=== PATIENT | male | born 1955 | race Caucasian/White ===

== ENCOUNTER 2017-06-04 16:26 | Inpatient (IN) | payer BC ==
[2017-06-04 16:48] VITALS: BMI 40.4
[2017-06-04] MEDS ORDERED: FLU VACC QS2017-18 36 mo. & older 0.5 ML SYRINGE IM ONE (17:15)
[2017-06-04 19:05] LABS: #Eosinphils 0.3 thou/uL (0.0-0.7); #Lymphocytes 1.5 thou/uL (1.20-3.40); #Neutrophils 8.7 thou/uL (1.40-6.50); %Basophils 0.1 % (0.0-1.0); %Lymphocytes 12.7 % (21.0-51.0); %Monocytes 8.8 % (0.0-10.0); %Neutrophils 75.4 % (42.0-75.0); Hemoglobin 16.4 g/dL (14.0-18.0); Mean Corpuscular HGB CONC 31.3 g/dL (32.0-36.0); Mean Corpuscular Hemoglobin 28.1 pg (27.0-31.0); Mean Corpuscular Volume 89.7 fl (80.0-94.0); Mean Platelet Volume 8.5 fL (7.4-10.4); Platelet Count 235 thou/uL (130-400); Red Blood Cell (RBC) Count 5.85 mill/uL (4.70-6.10); White Blood Cell (WBC) Count 11.5 thou/uL (4.8-10.8)
[2017-06-04 19:29] LABS: ALT (SGPT) 15 U/L (8-55); AST (SGOT) 9 U/L (5-34); Albumin 3.9 g/dL (3.4-4.8); Alkaline Phosphatase 72 U/L (40-150); Anion Gap 12 mmol/L (10-20); BUN (Urea Nitrogen) 18 mg/dL (8.4-25.7); Bilirubin, Total 0.7 mg/dL (0.2-1.2); Calc. Creatinine Clearance 193 mL/min (70-130); Calcium 9.9 mg/dL (7.8-10.44); Carbon Dioxide 25 mmol/L (23-31); Chloride 101 mmol/L (98-107); Estimated GFR-MDRD 87; Globulin 3.1 g/dL (2.4-3.5); Glucose 92 mg/dL (80-115); Potassium 4.4 mmol/L (3.5-5.1); Sodium 134 mmol/L (136-145)
--- NOTE | 2017-06-04 23:52 | ULT ---
BILATERAL LOWER EXTREMITY ARTERIAL DOPPLER STUDY: 06/04/17 Ultrasound doppler study is performed in the arteries of both lower extremities. Color doppler with s pectral analysis and velocity recordings obtained at all segments. HISTORY: Left foot gangrene. LEFT LOWER EXTREMITY: The left common femoral artery shows a normal triphasic waveform. The left profunda femoral and superficial femoral arteries show a biphasic waveform. Left popliteal artery shows a biphasic waveform. Left anterior tibial artery show a biphasic waveform. The left posterior tibial artery and dorsalis pedis artery show a monophasic waveform. RIGHT LOWER EXTREMITY: The right common femoral artery, profunda femoral, superficial femoral, popliteal, and anterior tibia l artery all show a normal triphasic waveform. The right posterior tibial artery shows a biphasic waveform. The right dorsalis pedis artery exhibits a monophasic waveform. IMPRESSION: Evidence of moderate disease below the knee on the left with monophasic waveform seen in the left pos terior tibial artery and dorsalis pedis artery. POS: [facility]
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
[2017-06-05] MEDS: Bupropion 150 MG XL TAB PO SCH (08:55)
--- NOTE | 2017-06-05 12:00 | CT ---
CT ANGIO OF ABDOMEN AND PELVIS AND LOWER EXTREMITIES PERFORMED WITH INTRAVENOUS CONTRAST ENHANCEMENT WITH 3D RECONSTRUCTIONS: History: Left foot gangrene. FINDINGS: This examination did not include the entire abdomen due to patient being 6'6, to obtained the enti re lower extremities a portion of the abdomen was not included on this exam. The visualized portions of the liver and spleen are unremarkable. Only a small portion of the pancrea tic head is visualized and is normal. The lower half of both kidneys are noted. There is a small dens e calcification along the cortex of the right kidney and a Bosniak II lobulated mass involving the po sterior cortex of the right kidney, it measures 2.7 cm in size and has fairly dense calcification carolyn ng the margin and would warrant follow up. No significant periaortic adenopathy noted. No significant pelvic adenopathy. Angiographic portion of this examination did not include the celiac artery but shows a patent superio r mesenteric artery and single renal arteries bilaterally. The abdominal aorta is normal in caliber. The right lower extremity run off shows patent internal, external, and common iliac arteries. The rig ht common femoral artery, superficial and profunda femoral arteries appear unremarkable as does the r ight popliteal artery. There is a patent trifurcation and there is three vessel run off. On the left side, the left common as well as internal and external iliac arteries show no significant stenosis. The superficial and profunda femoral arteries are patent without significant narrowing and the popliteal artery is normal in caliber. There is a patent trifurcation and there is three vessel runoff to the foot. There is prominent varicosities particularly involving the left leg and soft tissue edema changes of the calf region. In addition there is pronounced atrophy in the region of the gastro and psoas muscle s on the left side. There is also a small left common and external iliac vein. There is some calcific ation associated with this. Varicosities include prominent varicosities in the region of the scrotum. IMPRESSION: 1. Bosniak II lesion of the right kidney. Complete characterization with a CT with and without contra st with renal mass protocol is recommended and this will determine additional follow up. 2. Three vessel runoff to both lower extremities. No areas of any significant arterial narrowing. 3. Prominent varicosities, particularly the left lower extremity with asymmetry in size of left leg a s compared to the right and soft tissue edema changes in the calf region. In addition, there is diffu se muscle atrophy of the left calf, specifically the gastro and psoas muscles. This suggests a long-s tanding process. There is a small caliber left common iliac and external iliac vein with some calcifi cation. I suspect that this represents chronic thrombus and may explain the presence of the varicosit y. Venous ultrasound of the left leg may be helpful in assessment. POS: [facility]
[2017-06-05] MEDS ORDERED: HYDROcodone/Acetaminophen 5/325 mg Tablet PO PRN ×2 (17:05)
[2017-06-05] MEDS: Rivaroxaban 10 MG TAB PO SCH (17:28)
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
[2017-06-05 19:37] LABS: Vancomycin, Trough 24.1 ug/mL
--- NOTE | 2017-06-05 19:51 | ULT ---
LEFT LOWER EXTREMITY VENOUS DUPLEX EXAM: 06/05/17 Deep veins of the left lower extremity evaluated with color doppler and spectral analysis and manjit cristino. HISTORY: Left foot gangrene and peripheral vascular disease. Left leg edema. Deep veins of the left lower extremity evaluated including common femoral vein, profunda femoral, sup erficial femoral, greater saphenous and popliteal vein. Posterior tibial vein not adequately evaluate d due to bandaging. Deep veins evaluated show normal compression and blood flow. No evidence of DVT identified. IMPRESSION: No evidence of left lower extremity DVT. Incidentally noted is an enlarged lymph node in the left joanna in. POS: [facility]
[2017-06-05] MEDS: Vancomycin HCl 1.75 GM in Sodium Chloride 0.9% 500 ML IVPB SCH (22:26)
--- NOTE | 2017-06-06 02:26 | PRG ---
DATE OF SERVICE: 06/05/2017 SUBJECTIVE: The patient had a good night. His is at bedside. He did undergo multitude of test that were all abnormal. PHYSICAL EXAMINATION: GENERAL: Upon evaluation, he is awake, alert, and oriented to person, place and time. VITAL SIGNS: His blood pressure is 106/60, pulse 67, respirations 20, temperature 98.5. NECK: Supple. JVP cannot be assessed due to obese neck. Carotid had good upstroke with no thyromeg adelso. COR: Regular rate and rhythm. CHEST: Symmetrical. Clear to auscultation and percussion. ABDOMEN: Soft, nontender, obese. Normoactive bowel sounds. No bruit or organomegaly. EXTREMITIES: His left lower extremity is wrapped. He has missing toes bilaterally. ASSESSMENT: 1. Peripheral vascular disease. 2. History of left lower extremity deep venous thrombosis. 3. History of multiple amputations of bilateral toes. 4. Anxiety. 5. Obesity. 6. Tobacco use. 7. Bosniak 2 lesion of the right kidney. PLAN: 1. I have ordered a left lower extremity venous Doppler to further address the chronic thrombosis. Also, a CT with and without contrast renal protocol of the abdomen will be obtained as well. 2. Will continue IV antibiotics. Pharmacy is doing the peak and trough of the vanc and also will fo llow up in the morning with a CBC. Also, waiting for a cardiovascular surgeon ordered by Dr. Sondra hernandez. The patient verbalized understanding and all questions answered to satisfaction.
[2017-06-06 04:39] LABS: #Eosinphils 0.5 thou/uL (0.0-0.7); #Lymphocytes 1.3 thou/uL (1.20-3.40); #Monocytes 0.7 thou/uL (0.11-0.59); #Neutrophils 5.1 thou/uL (1.40-6.50); %Basophils 0.4 % (0.0-1.0); %Eosinophils 6.2 % (0.0-10.0); %Lymphocytes 16.7 % (21.0-51.0); %Monocytes 9.7 % (0.0-10.0); Hemoglobin 15.3 g/dL (14.0-18.0); Mean Corpuscular HGB CONC 32.3 g/dL (32.0-36.0); Mean Corpuscular Hemoglobin 29.2 pg (27.0-31.0); Mean Corpuscular Volume 90.4 fl (80.0-94.0); Mean Platelet Volume 8.3 fL (7.4-10.4); Platelet Count 216 thou/uL (130-400); Red Blood Cell (RBC) Count 5.22 mill/uL (4.70-6.10); White Blood Cell (WBC) Count 7.6 thou/uL (4.8-10.8)
[2017-06-06] MEDS: Vancomycin HCl 1.75 GM in Sodium Chloride 0.9% 500 ML IVPB SCH ×3 (05:52→21:15)
[2017-06-06] MEDS: Bupropion 150 MG XL TAB PO SCH (09:07)
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
--- NOTE | 2017-06-06 11:22 | CT ---
CT ABDOMEN WITH AND WITHOUT IV CONTRAST: DATE: 06/06/17. HISTORY: Followup right renal lesion noted on prior exam. COMPARISON: CT angiogram abdomen and pelvis on 06/05/17. FINDINGS: As noted on the prior exam, there is a lobulated exophytic complex cystic structure at the posterior aspect mid portion right kidney which demonstrates thick calcifications at the realm of a portion of this cystic lesion. This does not demonstrate enhancement between the pre- and post-contrast images. This is most compatible with a Bosniak category IIF lesion. This lesion in greatest dimensions ruth sures 3.1 cm. In addition, there is a tiny subcentimeter exophytic peripherally calcified subcentimeter cystic lesi on at the superior pole right kidney. A 2.2 cm exophytic increased density lesion is seen at the medial aspect of the mid portion left kidn ey. This does not demonstrate enhancement and is consistent with Bosniak type II cystic renal lesion . No enhancing renal lesion is identified. Multiple calculi are seen within the gallbladder lumen. There is atelectasis versus scarring at the left lung base with elevation of the lateral aspect of le ft hemidiaphragm which could be attributable to scarring. The liver demonstrates a normal sonographic appearance. There is low-density lesion within the anterior aspect body of the spleen measuring 1.7 cm which is d ifficult to characterize on this exam. The spleen is enlarged in craniocaudal dimensions measuring a pproximately 15 cm. The pancreas and bilateral adrenal glands demonstrate a normal CT appearance. A moderate amount of retained fecal material is seen in the colon. Vascular calcification is seen in the abdominal aorta and visualized iliac arteries. No other interv al change compared to the prior exam. IMPRESSION: 1. Bosniak type IIF cystic lesion mid portion of the right kidney with a very tiny subcentimeter Edd niak type IIF cystic renal lesion at the superior pole right kidney. Urology consultation and contin ued followup is recommended. 2. Bosniak type II left renal cyst. 3. Hypodense lesion within the body of the spleen which may represent a lymphangioma or possibly hem angioma. Splenomegaly. 4. Constipation. POS: [facility]
--- NOTE | 2017-06-06 12:29 | CON ---
DATE OF CONSULTATION: 06/06/2017 HISTORY OF PRESENT ILLNESS: I tried on three separate occasions to see Mr. Luu. He has not been i n his room on any of these occasions. The patient was admitted with left foot gangrene. He has had a vascular workup which includes a phys ical examination by Dr. Quiros documenting palpable pulses throughout. He has had a vascular ultras ound, which shows no evidence of DVT. He has had a CT angiogram with runoff of the aorta and bilater al lower extremity arteries, which shows no evidence of significant peripheral vascular disease and 3 -vessel runoff to the foot. IMPRESSION: No significant peripheral vascular disease. The foot should be managed as Dr. Quiros s ana luisa fit. I see no reason for further vascular investigation based on these studies.
[2017-06-06] MEDS: Rivaroxaban 10 MG TAB PO SCH (16:24)
--- NOTE | 2017-06-06 16:43 | PRG ---
DATE OF SERVICE: 06/06/2017 SUBJECTIVE: Mr. Luu feels fine today. He is not having any pain. His wound was examined with the wound care team. Skin along the medial edge is somewhat questionable. The remainder of the wound looks stable compared to yesterday. No fluctuance, no expressible purulence. Vascular surgery has seen him and does not feel that he has any macrovascular disease that can be surgically addressed. Cultures have multiple organisms on Gram stain with final IDs and sensitivities pending. The foot is less edematous today after being wrapped and elevated. ASSESSMENT: Nonhealing ulcer of the dorsum of the foot. Location of the ulcer would make it somewhat difficult to address with anything less than a below- knee amputation although a transmetatarsal amputation with a long plantar flap could be attempted. At this point, the ulcer appears fairly stable. We are going to give a trial of conservative wound management with VAC dressing and hyperbaric therapy and continued antibiotics and wound care team will be following the patient over the weekend. I will see him with them on Friday. If the wound looks significantly worse, then we will likely proceed to surgery. SOFIE
[2017-06-06 21:21] LABS: Vancomycin, Trough 27.1 ug/mL
[2017-06-07] MEDS: Bupropion 150 MG XL TAB PO SCH (09:10)
[2017-06-07] MEDS ORDERED: Milk Of Magnesia 30 ML UDCUP PO SCH (13:45)
[2017-06-07] MEDS ORDERED: Bisacodyl 10 MG SUPP PR SCH (13:45)
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
[2017-06-08] MEDS: Bupropion 150 MG XL TAB PO SCH (09:25)
[2017-06-08] MEDS: Enoxaparin Sodium 40 MG/0.4 ML SYRINGE SC SCH (09:25)
[2017-06-08] MEDS: Milk Of Magnesia 30 ML UDCUP PO SCH (09:25)
[2017-06-08 17:42] LABS: Vancomycin, Trough 16.2 ug/mL
[2017-06-09] MEDS: Enoxaparin Sodium 40 MG/0.4 ML SYRINGE SC SCH (08:58)
[2017-06-09] MEDS: Bupropion 150 MG XL TAB PO SCH (08:59)
[2017-06-09] MEDS: Milk Of Magnesia 30 ML UDCUP PO SCH (08:59)
[2017-06-10 07:36] VITALS: TEMP 97.8
[2017-06-10] MEDS: Enoxaparin Sodium 40 MG/0.4 ML SYRINGE SC SCH (08:06)
[2017-06-10] MEDS: Milk Of Magnesia 30 ML UDCUP PO SCH (08:06)
[2017-06-10] MEDS: Bupropion 150 MG XL TAB PO SCH (08:07)
[2017-06-10 12:38] VITALS: BP 120/68
--- NOTE | 2017-06-10 19:45 | DIS ---
FINAL DIAGNOSES: 1. Left foot ulcer. 2. Obesity. 3. Hypertension. 4. Tobacco use. 5. History of deep vein thrombosis and pulmonary embolism, on Xarelto. 6. History of peripheral vascular disease. COMPLICATIONS: None. PROCEDURES: The patient had abdominal aorta runoff CTA on 06/05/2017 at which time he was found to h ave Bosniak 2 lesion of the right kidney, also chronic thrombosis, muscle atrophy and no significant area of arterial narrowing. CONSULTANTS: 1. Dr. Quiros. 2. Dr. Loomis. HOSPITAL COURSE: This is a pleasant gentleman who was seen in the clinic where he had an ulcer that he states happened after his boot started rubbing it. His was taking care of it at home. When he was seen in the clinic, it looked horrible, had a foul smelling odor to it. He was immediately ad mitted to the hospital where arterial Doppler was positive for PVD. The patient was started on IV an tibiotics. Home medications were resumed. The patient also had a left lower extremity venous Dopple r which was unremarkable. The patient underwent aorta with runoff , tolerated the procedure wel l and had no complication. The patient was seen by Wound Care and Dr. Quiros. Dr. Quiros did treat his foot at bedside by rem oving necrotic tissue. The patient was found to have a renal mass as enumerated above. Dr. Loomis was asked to see the patient in consultation and did not feel like this was anything to worry about, but, however, would need to return to his office to repeat CAT scan in 6 months. The patient's lab w as unremarkable. White blood cells were normal, upon evaluation was 11.5 and upon dismissal was 7.6. His sodium was 134. The patient had no complications. His vancomycin was discontinued. He will b e started on Bactrim-DS b.i.d. for 10 days. I did speak with Dr. Quiros. Dr. Quiros said he could be dismissed and have hyperbaric and home VAC, also home health would be set up. The patient was ad vised to stop smoking secondary to poor healing. The patient verbalized understanding. He will cont inue on a regular diet. ACTIVITIES: As tolerated by patient. DISCHARGE MEDICATIONS: 1. Bactrim-DS b.i.d. for 10 days. 2. Aspirin 81 mg daily. 3. Olmesartan medoxomil 40 mg every day. 5. Xarelto 20 mg every day. 6. Wellbutrin-XL 150 mg every day. FOLLOWUP: He will follow up with Rekha in 1 week. He will also follow up with outpatient [facility] and he would also see Dr. Quiros there as well. This is ORLANDO Sampson, dictating for Riley Reid M.D.
== END 2017-06-10 15:41 | disposition home or self-care (01) | DRG 300 ==
LOC: T4-B 16:26
PROVIDERS: ADMIT Specialist; ATTEND Specialist
PROC: B41D1ZZ Fluoroscopy of Aorta and Bilateral Lower Extremity Arteries using Low Osmolar Contrast (ICD-10-PCS; principal; 2017-06-05)
DX: I96 Gangrene, not elsewhere classified (principal); Z68.41 Body mass index [BMI] 40.0-44.9, adult; L97.529 Non-pressure chronic ulcer of other part of left foot with unspecified severity; I73.9 Peripheral vascular disease, unspecified; N28.1 Cyst of kidney, acquired; F17.210 Nicotine dependence, cigarettes, uncomplicated; I10 Essential (primary) hypertension; Z86.718 Personal history of other venous thrombosis and embolism; Z79.01 Long term (current) use of anticoagulants; Z89.422 Acquired absence of other left toe(s); Z89.421 Acquired absence of other right toe(s); F41.9 Anxiety disorder, unspecified; E66.9 Obesity, unspecified; I87.2 Venous insufficiency (chronic) (peripheral); M62.562 Muscle wasting and atrophy, not elsewhere classified, left lower leg
CPT/HCPCS: 36415; 74170; 75635; 80053; 80202; 85025; 87070; 87077; 87205; 93923; 93925; 99183; A4216; J1650; J3370; J7050

== ENCOUNTER 2017-06-11 12:57 | Outpatient (CLI) | payer BC | END 2017-06-11 12:58 | disposition home or self-care (01) | LOC: HBO 12:57 | PROVIDERS: ATTEND Family Medicine | DX: I70.25 Atherosclerosis of native arteries of other extremities with ulceration (principal) | CPT/HCPCS: 99183 ==

== ENCOUNTER 2017-06-16 12:53 | Outpatient (CLI) | payer BC | END 2017-06-16 12:54 | disposition home or self-care (01) | LOC: WCC 12:53 | PROVIDERS: ATTEND Podiatrist Foot & Ankle Surgery | DX: I70.25 Atherosclerosis of native arteries of other extremities with ulceration (principal) | CPT/HCPCS: 97605 ==

== ENCOUNTER 2017-06-17 15:03 | Outpatient (CLI) | payer BC | END 2017-06-17 15:04 | disposition home or self-care (01) | LOC: WCC 15:03 | PROVIDERS: ATTEND Podiatrist Foot & Ankle Surgery | DX: I70.25 Atherosclerosis of native arteries of other extremities with ulceration (principal) | CPT/HCPCS: 97605; 99183 ==

== ENCOUNTER 2017-06-18 12:44 | Outpatient (CLI) | payer BC | END 2017-06-18 12:45 | disposition home or self-care (01) | LOC: HBO 12:44 | PROVIDERS: ATTEND Family Medicine | DX: I70.25 Atherosclerosis of native arteries of other extremities with ulceration (principal) | CPT/HCPCS: 99183 ==

== ENCOUNTER 2017-06-23 12:40 | Outpatient (CLI) | payer BC ==
--- NOTE | 2017-06-23 17:22 | PRG ---
DATE OF SERVICE: 06/23/2017 HISTORY: Mr. Arash Luu is a very pleasant 61-year-old gentleman who presents to the [facility]ound Center for evaluation of an ulceration over the dorsum of the left foot. The patient's medical history is significant for peripheral vascular disease. The patient is presently receiving hyperbaric oxygen therapy. The patient is also receiving negative pressure therapy for the ulceration over the dorsum of the left foot. PHYSICAL EXAMINATION: VITAL SIGNS: Temperature 97.5, pulse 86, respirations 18, blood pressure 120/ 62. EXTREMITIES: An ulceration over the dorsum of the left foot is present. The dimensions of the wound are approximately 2.8 x 5.5 cm. Granulation tissue is present within the wound margins. No purulent drainage is associated with the wound. Tendon is exposed within the wound margins. The ulceration over the dorsum of the left foot was copiously irrigated with normal saline. Hyalomatrix was fenestrated and cut with scissors to mirror the shape of the wound. The Hyalomatrix was then placed into the wound bed silicone side up and covered with Adaptic Touch. After draping of the periwound over the Adaptic Touch, GranuFoam was applied to the wound bed over the Hyalomatrix and Adaptic Touch. ASSESSMENT AND PLAN: 1. Ulceration over dorsum of left foot with exposed tendon. Hyalomatrix was applied to the wound bed of the ulceration today. Negative pressure therapy will be continued. The wound VAC will be placed to settings of 125 mmHg, continuous. The next wound VAC dressing change will be on 06/26/2017. I will see Mr. Luu again in 1 week. Hyperbaric oxygen therapy will also be continued. 2. Hypertension. 3. Peripheral vascular disease. 4. Deep venous thrombosis of right and left lower extremities. [facility]
== END 2017-06-23 12:41 | disposition home or self-care (01) ==
LOC: WCC 12:40
PROVIDERS: ATTEND Podiatrist Foot & Ankle Surgery
DX: L97.529 Non-pressure chronic ulcer of other part of left foot with unspecified severity (principal); I10 Essential (primary) hypertension; I73.9 Peripheral vascular disease, unspecified; I82.403 Acute embolism and thrombosis of unspecified deep veins of lower extremity, bilateral
CPT/HCPCS: 97605; 99183

== ENCOUNTER 2017-06-24 13:50 | Outpatient (CLI) | payer BC | END 2017-06-24 13:51 | disposition home or self-care (01) | LOC: WCC 13:50 | PROVIDERS: ATTEND Podiatrist Foot & Ankle Surgery | DX: T81.89XD Other complications of procedures, not elsewhere classified, subsequent encounter (principal) | CPT/HCPCS: 99183 ==

== ENCOUNTER 2017-06-26 13:03 | Outpatient (CLI) | payer BC | END 2017-06-26 13:04 | disposition home or self-care (01) | LOC: WCC 13:03 | PROVIDERS: ATTEND Podiatrist Foot & Ankle Surgery | DX: T81.89XD Other complications of procedures, not elsewhere classified, subsequent encounter (principal) | CPT/HCPCS: 97605; 99183 ==

== ENCOUNTER 2017-06-30 12:54 | Outpatient (CLI) | payer BC ==
[~2017-06-30 12:54] MED LIST: Sodium Chloride 0.9% 15 ML NEB ONE
--- NOTE | 2017-06-30 13:50 | PRG ---
DATE OF SERVICE: 06/30/2017 HISTORY: Mr. Arash Luu is a very pleasant 61-year-old gentleman who presents to the Wound Center for evaluation of ulceration over the dorsum of the left foot. The patient's medical history is sign ificant for peripheral vascular disease. The patient is currently receiving treatment with Hyalomatr ix in conjunction with negative pressure therapy for the ulceration over the dorsum of the left foot. The patient has also been receiving hyperbaric oxygen therapy. PHYSICAL EXAMINATION: VITAL SIGNS: Temperature 97.9, pulse 111, respirations 18, and blood pressure 167/77. EXTREMITIES: Ulceration over the dorsum of the left foot is still present. The dimensions of the wo und are approximately 5.4 x 2.8 cm. The dimensions of the wound at the time of the patient's visit o n 06/23/2017 were approximately 5.5 x 2.8 cm. Granulation tissue is present within the wound margins . No purulent drainage is associated with the wound. No erythema of the skin surrounding the wound is present. No maceration of the skin of the periwound is noted. A dorsalis pedis pulse is palpable on the left. No significant edema of the left foot is appreciated on today's exam. The ulceration over the dorsum of the left foot was copiously irrigated with normal saline. Hyalomatrix was fenestr ated and trimmed with scissors to mirror, the shape of the wound. Hyalomatrix was then placed into t he wound bed silicone side up and covered with Adaptic touch. After draping of the periwound over th e Adaptic touch, Granufoam was applied to the wound bed over the Hyalomatrix and Adaptic touch. ASSESSMENT AND PLAN: 1. Ulceration over dorsum of left foot with exposed tendon. Hyalomatrix was applied to the wound be d of the ulceration today. Negative pressure therapy will be continued. The wound VAC will be place d to settings of 125 mmHg, continuous. The next wound VAC dressing change will be in 3 days. I will see Mr. Luu again in two weeks. The patient declines hyperbaric oxygen therapy today because of c laustrophobia. 2. Hypertension. 3. Peripheral vascular disease. 4. Deep venous thrombosis of right and left lower extremities.
== END 2017-06-30 12:55 | disposition home or self-care (01) ==
LOC: HBO 12:54
PROVIDERS: ATTEND Family Medicine
DX: L97.529 Non-pressure chronic ulcer of other part of left foot with unspecified severity (principal); I10 Essential (primary) hypertension; I73.9 Peripheral vascular disease, unspecified; I82.403 Acute embolism and thrombosis of unspecified deep veins of lower extremity, bilateral
CPT/HCPCS: 97605; A4218

== ENCOUNTER 2017-07-03 07:50 | Outpatient (CLI) | payer BC ==
[2017-07-07] MEDS ORDERED: Sodium Chloride 0.9% 15 ML NEB ONE (16:50)
== END 2017-07-03 07:51 | disposition home or self-care (01) ==
LOC: WCC 07:50
PROVIDERS: ATTEND Family Medicine
DX: T81.89XD Other complications of procedures, not elsewhere classified, subsequent encounter (principal)
CPT/HCPCS: 97605; A4218

== ENCOUNTER 2017-07-07 10:03 | Outpatient (CLI) | payer BC | END 2017-07-07 10:04 | disposition home or self-care (01) | LOC: WCC 10:03 | PROVIDERS: ATTEND Family Medicine | DX: T81.89XD Other complications of procedures, not elsewhere classified, subsequent encounter (principal) | CPT/HCPCS: 97606; A4218 ==

== ENCOUNTER 2017-07-10 09:41 | Outpatient (CLI) | payer BC ==
[2017-07-10] MEDS ORDERED: Sodium Chloride 0.9% 15 ML NEB ONE ×2 (16:28→16:29)
== END 2017-07-10 09:42 | disposition home or self-care (01) ==
LOC: WCC 09:41
PROVIDERS: ATTEND Family Medicine
DX: T81.89XD Other complications of procedures, not elsewhere classified, subsequent encounter (principal)
CPT/HCPCS: 97605; A4218

== ENCOUNTER 2017-07-14 12:47 | Outpatient (CLI) | payer BC ==
--- NOTE | 2017-07-14 14:19 | PRG ---
DATE OF SERVICE: 07/14/2017 HISTORY: Mr. Arash Luu is a very pleasant 61-year-old gentleman, who presents to [facility] for evaluation of an ulceration over the dorsum of the left foot. The patient's medical history is significant for peripheral vascular disease. The patient is presently receiving treatment with Hy alomatrix in conjunction with negative pressure therapy for the ulceration over the dorsum of the lef t foot. The patient has completed a course of hyperbaric oxygen therapy. PHYSICAL EXAMINATION: VITAL SIGNS: Temperature 99.3, pulse 89, respirations 19, and blood pressure 132/62. EXTREMITIES: An ulceration over the dorsum of the left foot is still present. The dimensions of the wound are approximately 3.5 x 5.0 cm. The dimensions of the wound at the time of the patient's visi t on 06/30/2017 were approximately 5.4 x 2.8 cm. Granulation tissue is present within the wound mina ins. No purulent drainage is associated with the wound. A small portion of the wound bed has a gree n discoloration. ASSESSMENT AND PLAN: 1. Ulceration over dorsum of left foot with exposed tendon. Negative pressure therapy will be sahara nued. The wound VAC will be placed the settings of 125 mmHg continuous. The next wound VAC dressing change will be in 3 days. I will see Mr. Luu again in one week. The patient has been given a pre scription for Levaquin 500 mg #10 one p.o. q. day x10 days. As stated above, the patient has complet ed a course of hyperbaric oxygen therapy. 2. Hypertension. 3. Peripheral vascular disease. 4. Deep venous thrombosis of right and left lower extremities.
[2017-07-14] MEDS ORDERED: Sodium Chloride 0.9% 15 ML NEB ONE (19:53)
[2017-07-14] MEDS ORDERED: Lidocaine 2% Jelly 5 ML TUBE ONE (19:53)
== END 2017-07-14 12:48 | disposition home or self-care (01) ==
LOC: WCC 12:47
PROVIDERS: ATTEND Family Medicine
DX: L97.528 Non-pressure chronic ulcer of other part of left foot with other specified severity (principal); I10 Essential (primary) hypertension; I73.9 Peripheral vascular disease, unspecified; I82.403 Acute embolism and thrombosis of unspecified deep veins of lower extremity, bilateral
CPT/HCPCS: A4218

== ENCOUNTER 2017-07-15 11:38 | Outpatient (CLI) | payer BC | END 2017-07-15 11:39 | disposition home or self-care (01) | LOC: WCC 11:38 | PROVIDERS: ATTEND Family Medicine | DX: T81.89XD Other complications of procedures, not elsewhere classified, subsequent encounter (principal) | CPT/HCPCS: 97605 ==

== ENCOUNTER 2017-07-17 10:36 | Outpatient (CLI) | payer BC ==
[2017-07-18] MEDS ORDERED: Sodium Chloride 0.9% 15 ML NEB ONE (12:34)
== END 2017-07-17 10:37 | disposition home or self-care (01) ==
LOC: WCC 10:36
PROVIDERS: ATTEND Family Medicine
DX: T81.89XD Other complications of procedures, not elsewhere classified, subsequent encounter (principal)
CPT/HCPCS: 97605

== ENCOUNTER 2017-07-21 10:25 | Outpatient (CLI) | payer BC | END 2017-07-21 10:26 | disposition home or self-care (01) | LOC: WCC 10:25 | PROVIDERS: ATTEND Family Medicine | DX: T81.89XD Other complications of procedures, not elsewhere classified, subsequent encounter (principal) | CPT/HCPCS: 97605 ==

== ENCOUNTER 2017-07-24 10:05 | Outpatient (CLI) | payer BC ==
--- NOTE | 2017-07-24 12:21 | PRG ---
DATE OF SERVICE: 07/24/2017 HISTORY: Mr. Arash Luu is a very pleasant 61-year-old gentleman who presents to the Wound Center for evaluation of an ulceration over the dorsum of the left foot. The patient's medical history is significant for peripheral vascular disease. The patient is currently receiving treatment with Hyalomatrix in conjunction with negative pressure therapy for the ulceration over the dorsum of the left foot. The patient has completed a course of hyperbaric oxygen therapy. PHYSICAL EXAMINATION: VITAL SIGNS: Temperature 97.7, pulse 85, respirations 18, blood pressure 169/ 75. EXTREMITIES: An ulceration over the dorsum of the left foot is still present. The dimensions of the wound are approximately 4.5 x 2.8 cm. The dimensions of the wound at the time of the patient's visit on 07/14/2017 were approximately 3.5 x 5.0 cm. Granulation tissue is present within the wound margins. No purulent drainage is associated with the wound. Only a small portion of the wound bed has a green discoloration. ASSESSMENT AND PLAN: 1. Ulceration over dorsum of left foot with exposed tendon. Negative pressure therapy will be discontinued today. Dressing changes of Xeroform gauze, an ABD or 4 x 4, followed by Kerlix and the patient's compression garment will be initiated today. These dressing changes are to be performed on a daily basis after cleansing and irrigation. The patient will be performing his own dressing changes. I will see Mr. Luu again in 1 week. The patient was previously given a prescription for Levaquin 500 mg, #10, 1 p.o. daily x10 days , which he states he is taking as prescribed. As stated above, the patient has completed a course of hyperbaric oxygen therapy. 2. Hypertension. 3. Peripheral vascular disease. 4. Deep venous thrombosis of right and left lower extremities. [facility]
[2017-07-24] MEDS ORDERED: Sodium Chloride 0.9% 15 ML NEB ONE (17:08)
== END 2017-07-24 10:06 | disposition home or self-care (01) ==
LOC: WCC 10:05
PROVIDERS: ATTEND Family Medicine
DX: L97.529 Non-pressure chronic ulcer of other part of left foot with unspecified severity (principal); I73.9 Peripheral vascular disease, unspecified; I82.403 Acute embolism and thrombosis of unspecified deep veins of lower extremity, bilateral; I10 Essential (primary) hypertension
CPT/HCPCS: 97602; A4218

== ENCOUNTER 2017-09-04 14:50 | Outpatient (CLI) | payer BC ==
--- NOTE | 2017-09-04 16:28 | PRG ---
DATE OF SERVICE: 09/04/2017 HISTORY: Mr. Arash Luu is a very pleasant 62-year-old gentleman who presents to the Wound Cent er for evaluation of an ulceration over the dorsum of the left foot. The patient's medical history i s significant for peripheral vascular disease. The patient has completed a course of treatment with high low matrix in conjunction with negative pressure therapy for the ulceration over the dorsum of t he left foot. The patient has also completed a course of hyperbaric oxygen therapy. PHYSICAL EXAMINATION: VITAL SIGNS: Temperature 97.9, pulse 88, respirations 18, blood pressure 153/65. EXTREMITIES: An ulceration over the dorsum of the left foot is still present. The dimensions of the wound are approximately 3.7 x 3.5 cm. Granulation tissue is present within the wound margins. Necr otic and nonviable tissue present within the wound margins was debrided with an excisional full-thick ness debridement with the use of a curette and scissors. No purulent drainage is associated with the wound. No erythema of the skin surrounding the wound is present. No maceration of the skin of the periwound is noted. A dorsalis pedis pulse is palpable on the left. No significant edema of the lef t foot is present on exam today. ASSESSMENT AND PLAN: 1. Ulceration over dorsum of left foot. Dressing changes of Xeroform gauze followed by 4 x 4s, Kerl ix, and the patient's compression garment are to be performed on a daily basis after cleansing and ir rigation. The patient has been instructed to remove his compression garment at night. The patient w ill continue to perform his own dressing changes. I will see Mr. Luu again in one week. 2. Hypertension. 3. Peripheral vascular disease. 4. Deep venous thrombosis of right and left lower extremities.
== END 2017-09-04 14:51 | disposition home or self-care (01) ==
LOC: WCC 14:50
PROVIDERS: ATTEND Family Medicine
DX: L97.529 Non-pressure chronic ulcer of other part of left foot with unspecified severity (principal); I10 Essential (primary) hypertension; I73.9 Peripheral vascular disease, unspecified; I82.403 Acute embolism and thrombosis of unspecified deep veins of lower extremity, bilateral
CPT/HCPCS: 11042

== ENCOUNTER 2017-09-15 13:03 | Outpatient (CLI) | payer BC ==
--- NOTE | 2017-09-15 14:29 | PRG ---
DATE OF SERVICE: 09/15/2017 HISTORY: Mr. Arash Luu is a very pleasant 62-year-old gentleman who presents to the [facility] for evaluation of an ulceration over the dorsum of the left foot. The patient's medical history is significant for peripheral vascular disease. The patient has completed a course of treatment with H yalomatrix in conjunction with negative pressure therapy for the ulceration over the dorsum of the le ft foot. The patient has also completed a course of hyperbaric oxygen therapy. PHYSICAL EXAMINATION: VITAL SIGNS: Temperature 98.2, pulse 79, respirations 19, blood pressure 153/68. EXTREMITIES: The ulceration over the dorsum of the left foot has divided into 2 ulcerations which me asure approximately 2.2 x 1.9 cm and 0.5 x 0.6 cm. Granulation tissue is present within the margins of each wound. No purulent drainage is associated with either wound. No erythema of the skin surrou nding either wound is present. No maceration of the skin of the periwound of either wound is noted. No significant edema of the left foot is present on exam today. ASSESSMENT AND PLAN: 1. Ulceration over dorsum of left foot. As stated above, the ulceration has divided into 2 ulcerati ons. Dressing changes of Xeroform gauze followed by 4 x 4s and Kerlix and the patient's compression garment are to be performed on a daily basis after cleansing and irrigation. The patient has been re minded to remove his compression garment at night. The patient will continue to perform his own dres sing changes. I will see Mr. Luu again in two weeks. 2. Hypertension. 3. Peripheral vascular disease. 4. Deep venous thrombosis of right and left lower extremities.
== END 2017-09-15 13:04 | disposition home or self-care (01) ==
LOC: WCC 13:03
PROVIDERS: ATTEND Family Medicine
DX: L97.529 Non-pressure chronic ulcer of other part of left foot with unspecified severity (principal); I10 Essential (primary) hypertension; I73.9 Peripheral vascular disease, unspecified; I82.403 Acute embolism and thrombosis of unspecified deep veins of lower extremity, bilateral
CPT/HCPCS: 97602

== ENCOUNTER 2017-10-16 12:54 | Outpatient (CLI) | payer BC ==
--- NOTE | 2017-10-16 14:03 | PRG ---
DATE OF SERVICE: 10/16/2017 HISTORY: Mr. Arash Luu is a very pleasant 62-year-old gentleman who presents to the Wound Cent er for evaluation of an ulceration over the dorsum of the left foot. The patient's medical history i s significant for peripheral vascular disease. The patient has completed a course of treatment with Hyalomatrix in conjunction with negative pressure therapy for the ulceration over the dorsum of the l eft foot. The patient has also completed a course of hyperbaric oxygen therapy. The patient states that the ulceration over the dorsum of the left foot increased in its dimensions after wearing boots required for his work. The patient has no other complaints today. He denies any fever or chills. T he patient states he has been performing dressing changes of Xeroform gauze for the ulceration over t he dorsum of the left foot. PHYSICAL EXAMINATION: VITAL SIGNS: Temperature 97.7, pulse 92, respirations 18, blood pressure 131/66. EXTREMITIES: At the time of the patient's last visit, the ulceration over the dorsum of the left gema t had divided into 2 ulcerations. Today, the dimensions of these wounds are approximately 3.0 x 2.5 cm and 0.3 x 0.3 cm. Granulation tissue is visible within the margins of the larger wound. No purul ent drainage is associated with either wound. No erythema of the skin surrounding either wound is pr esent. No maceration of the skin of the periwound of either wound is noted. No significant edema of the left foot is present on exam today. ASSESSMENT AND PLAN: 1. Ulceration over dorsum of left foot. As stated above, at the time of the patient's last visit, t he ulceration was noted to have divided into 2 ulcerations. Dressing changes of Xeroform gauze will be discontinued. Dressing changes of Medihoney will be initiated today, 4 x 4s and an ABD, followed by Kerlix will be utilized as secondary dressings. The patient is to continue to utilize his manjit cristino garment in conjunction with the preceding dressing changes. The patient has been reminded to re move his compression garment at night. The patient is to perform the preceding dressing changes on a daily basis or alternatively every other day after cleansing and irrigation. The patient will sahara nue to perform his own dressing changes. I will see Mr. Luu will again in two weeks. 2. Hypertension. 3. Peripheral vascular disease. 4. Deep venous thrombosis of right and left lower extremities.
== END 2017-10-16 12:55 | disposition home or self-care (01) ==
LOC: WCC 12:54
PROVIDERS: ATTEND Family Medicine
DX: L97.529 Non-pressure chronic ulcer of other part of left foot with unspecified severity (principal); I10 Essential (primary) hypertension; I73.9 Peripheral vascular disease, unspecified; I82.403 Acute embolism and thrombosis of unspecified deep veins of lower extremity, bilateral
CPT/HCPCS: 97602

== ENCOUNTER 2018-04-02 10:46 | Outpatient (CLI) | payer BC ==
--- NOTE | 2018-04-02 13:43 | PRG ---
DATE OF SERVICE: 04/02/2018 HISTORY: Mr. Arash Luu is a very pleasant 62-year-old gentleman, who presents to the Wound Center for evaluation of an ulceration over the dorsum of the left foot. The patient previously received treatment with Hyalomatrix in conjunction with negative-pressure therapy for the ulceration over the dorsum of the left foot. The patient also received treatment with hyperbaric oxygen for the ulceration. The patient states that the ulceration over the dorsum of the left foot has recurred intermittently. The patient has been performing dressing changes of Xeroform gauze for the ulceration. The patient has no other complaints today. He denies any fever or chills. PHYSICAL EXAMINATION: VITAL SIGNS: Temperature 97.6, pulse 92, and respirations 18, and blood pressure 163/73. EXTREMITIES: The ulceration over the dorsum of the left foot measures approximately 4.2 x 4.2 cm. Granulation tissue is present within the wound margins. Necrotic and nonviable tissue present within the wound margins were debrided with an excisional full-thickness debridement with the use of scissors. No purulent drainage is associated with the wound. No erythema of the skin surrounding the wound is present. No maceration of the skin of the periwound is noted. No significant edema of the left foot is present on exam today. Hyalomatrix was applied to the wound bed of the ulceration with the silicone layer facing outwards. Prior to application of Hyalomatrix to the wound bed, the silicone layer was fenestrated with a scalpel. The ulceration was then dressed with Adaptic, ABD, and Kerlix. ASSESSMENT AND PLAN: 1. Ulceration over dorsum of left foot as described above. The patient has been instructed to change the secondary dressings as needed. The patient is also to utilize his compression garment in conjunction with the preceding dressing changes. I will see Mr. Luu again in 1 week. 2. Hypertension. 3. Peripheral vascular disease. 4. Deep venous thrombosis of right and left lower extremities. Job ID: [id number]
== END 2018-04-02 10:47 | disposition home or self-care (01) ==
LOC: WCC 10:46
PROVIDERS: ATTEND Family Medicine
DX: L97.529 Non-pressure chronic ulcer of other part of left foot with unspecified severity (principal); I10 Essential (primary) hypertension; I73.9 Peripheral vascular disease, unspecified; I82.403 Acute embolism and thrombosis of unspecified deep veins of lower extremity, bilateral
CPT/HCPCS: Q4117

== ENCOUNTER 2018-04-22 11:02 | Outpatient (CLI) | payer BC ==
--- NOTE | 2018-04-22 13:59 | PRG ---
DATE OF SERVICE: 04/22/2018 HISTORY: Mr. Arash Luu is a very pleasant 62-year-old gentleman, who [facility] for evaluation of an ulceration over the dorsum of the left foot. The patient is receiving treatment with Hyalomatrix for the ulceration over the dorsum of the left foot. Previously, the patient received treatment with Hyalomatrix in conjunction with negative pressure therapy. The patient also received treatment with hyperbaric oxygen therapy for the ulceration. Mr. Luu has no complaints today. He denies any fever or chills. PHYSICAL EXAMINATION: VITAL SIGNS: Temperature 98.6, pulse 92, respirations 18, blood pressure 163/75. EXTREMITIES: The ulceration over the dorsum of the left foot measures approximately 3.4 x 3.5 cm. The dimensions of the wound at the time of the patient's visit on 04/02/2018 were approximately 4.2 x 4.2 cm. Granulation tissue is present within the wound margins. No purulent drainage is associated with the wound. No erythema of the skin surrounding the wound is present. No maceration of the skin of the periwound is noted. No significant edema of the left foot is present on exam today. Hyalomatrix was applied to the wound bed of the ulceration with the silicone layer facing outwards. Prior to application of Hyalomatrix to the wound bed, the silicone layer was fenestrated with a scalpel. The ulceration was then dressed with Adaptic, ABD, and Kerlix, and the patient's compression garment. ASSESSMENT AND PLAN: 1. Ulceration over dorsum of left foot as described above. The patient has been instructed to change the secondary dressings as needed. He is to continue to utilize his compression garment in conjunction with the preceding dressing changes. I will see Mr. Luu again in 2 weeks. 2. Hypertension. 3. Peripheral vascular disease. 4. Deep venous thrombosis of the right and left lower extremities. Job ID: [id number]
[2018-04-22] MEDS ORDERED: Sodium Chloride 0.9% 15 ML NEB ONE (15:00)
== END 2018-04-22 11:03 | disposition home or self-care (01) ==
LOC: WCC 11:02
PROVIDERS: ATTEND Family Medicine
DX: L97.529 Non-pressure chronic ulcer of other part of left foot with unspecified severity (principal); I10 Essential (primary) hypertension; I73.9 Peripheral vascular disease, unspecified; I82.403 Acute embolism and thrombosis of unspecified deep veins of lower extremity, bilateral
CPT/HCPCS: A4218; C5275; Q4117

== ENCOUNTER 2019-04-23 13:12 | Inpatient (IN) | payer BC, OTHER ==
--- NOTE | 2019-04-23 13:48 | RAD ---
EXAM: Single view of the chest HISTORY: Chest pain COMPARISON: 01/21/2013 FINDINGS: Single view of the chest shows an enlarged but stable cardiomediastinal silhouette. There i s no evidence of consolidation, mass, or pleural effusion. The bones are unremarkable. IMPRESSION: No evidence of acute cardiopulmonary disease
--- NOTE | 2019-04-23 14:15 | ULT ---
LEFT LOWER EXTREMITY VENOUS ULTRASOUND WITH DOPPLER: COMPARISON: 06/05/2017. HISTORY: Pain. TECHNIQUE: Grayscale, color flow, Doppler imaging and spectral wave was performed left lower extremity venous sy stem. FINDINGS: Limited evaluation due to body habitus and inability to adequately compress the venous system due to patient discomfort. There is compressibility, presence of flow and augmentation the common femoral vein, femoral vein and popliteal vein. There does appear to be flow in the greater saphenous vein and profunda femoral vein. Posterior tibial vein is not appreciated. IMPRESSION: No evidence of thrombus in the visualized left lower extremity deep venous system. Transcribed Date/Time: 04/23/2019 2:28 PM
[2019-04-23 15:01] LABS: Hemoglobin 16.1 g/dL (14.0-18.0); Mean Corpuscular HGB CONC 32.7 g/dL (32.0-36.0); Mean Corpuscular Hemoglobin 27.5 pg (27.0-31.0); Mean Corpuscular Volume 84.3 fL (78.0-98.0); Mean Platelet Volume 8.9 fL (7.4-10.4); Platelet Count 226 thou/uL (130-400); RBC Distribution Width 15.5 % (11.5-14.5); Red Blood Cell (RBC) Count 5.84 mill/uL (4.70-6.10)
[2019-04-23 15:17] LABS: Band 9 % (5-11); Eosinophils 1 % (0-10); Lymphocytes 2 % (21-51); MDiff Complete? YES; Monocytes 9 % (0-10); Neutrophil 78 % (42-75); Platelet Morphology Comment Appears Adequate; RBC Morphology Normal; Reactive Lymphocytes 1 % (0-10)
[2019-04-23 15:21] LABS: Anion Gap 14 mmol/L (10-20); BUN (Urea Nitrogen) 16 mg/dL (8.4-25.7); Calc. Creatinine Clearance 0 mL/min (70-130); Calcium 9.5 mg/dL (7.8-10.44); Carbon Dioxide 22 mmol/L (23-31); Chloride 101 mmol/L (98-107); Estimated GFR-MDRD 79; Glucose 106 mg/dL (80-115); Potassium 4.2 mmol/L (3.5-5.1); Sodium 133 mmol/L (136-145)
[2019-04-23 15:22] LABS: ALT (SGPT) 21 U/L (8-55); AST (SGOT) 18 U/L (5-34); Albumin 3.7 g/dL (3.4-4.8); Alkaline Phosphatase 68 U/L (40-110); Bilirubin, Total 0.8 mg/dL (0.2-1.2); CK (CPK) 18 U/L (30-200); Globulin 3.2 g/dL (2.4-3.5); Lipase 13 U/L (8-78); Protein, Total 6.9 g/dL (5.8-8.1)
[2019-04-23 15:43] LABS: CKMB 0.7 ng/mL (0-6.6)
[2019-04-23 15:45] LABS: Bacteria/HPF None Seen HPF (None Seen); Bilirubin Negative (Negative); Blood, Urine Negative (Negative); Clarity Clear (Clear); Glucose, Urine (Dipstick) Normal (Negative); Leukocyte Negative Leu/uL (Negative); Mucous/LPF 1+ LPF (<2+); Nitrite Negative (Negative); Protein, Urine (Dipstick) 50 mg/dL (Neg-Trace); RBC/HPF 0-3 HPF (0-3); Squamous Epithelial None Seen HPF (0-3); WBC/HPF 0-3 HPF (0-3)
[2019-04-23] MEDS ORDERED: MEROPENEM 1 GM/50 ML 1 GM in Premix Bag 1 BAG IVPB SCH (15:45)
--- NOTE | 2019-04-23 16:10 | CT ---
CT LEFT LEG NONCONTRAST: 04/23/19 CLINICAL HISTORY: Fever and dizziness. FINDINGS: No evidence of soft tissue gas. There is generalized edema. Muscular atrophy is present. Partially im aged, at the distal right thigh overlying the medial femoral condyle, there is a partially imaged flu id density. This is incompletely assessed. Finding could relate to partial visualization of the joint fluid. Scattered varicosities are incidentally noted throughout the left leg. The imaged left foot d emonstrates prominent skin thickening as well as overlying bandaging and prominent edema. There is sc attered osseous degenerative change. No osseous destructive lesion. Within the imaged portions of the distal left foot, there is absence of majority of the second digit indicating prior partial amputati on. Correlate with surgical history. Scattered soft tissue calcification is seen. IMPRESSION: 1. No soft tissue gas. 2. Generalized edema of the imaged left lower extremity. There is also skin surface irregularity with overlying bandaging of the left foot. Correlate clinically. 3. Prominent varicosities. 4. Prominent muscular atrophy of the left soleus and gastrocnemius. POS: [facility]
[2019-04-23] MEDS ORDERED: Ondansetron PF 4 MG/2 ML Vial IVP PRN (17:35)
[2019-04-23] MEDS ORDERED: Acetaminophen 325 MG TAB PO PRN (17:35)
--- NOTE | 2019-04-23 17:47 | PDOC.HHP ---
Hospitalist HPI - History of Present Illness Chills, Left lower extremity pain History of Present Illness: Mr. Luu is a 63 y/o gentleman with PMH of HTN, chronic left foot wound who presents to the ED with chills. He reportedly was at work when he started to notice body chills and aches. Apparently yesterday he was fine. He has a chronic left lower extremity foot wound, which he sustained after a trauma 40 years ago. He states that he has chronic pain and drainage from the dorsal aspect of the foot. He notes that the pain has been worse recently of the extremity. He denies any cough or congestion. Denies recent sick contacts. Denies cp, sob, abdominal pain, diarrhea, or orther associated sxs. ED Course: Given 2L NS in Ed and dose of Merrem. CT was obtained of LL extremity, no gas demonstrated, there was generalized edema noted. Hospitalist ROS - Review of Systems Constitutional: reports: chills. denies: fever, sweats, weakness, malaise, other Eyes: denies: pain, vision change, conjunctivae inflammation, eyelid inflammation, redness, other ENT: denies: ear pain, ear discharge, nose pain, nose discharge, nose congestion , mouth pain, mouth swelling, throat pain, throat swelling, other Respiratory: denies: cough, dry, shortness of breath, hemoptysis, SOB with excertion, pleuritic pain, sputum, wheezing, other Cardiovascular: denies: chest pain, palpitations, orthopnea, paroxysmal noc. dyspnea, edema, light headedness, other Gastrointestinal: denies: nausea, vomiting, abdominal pain, diarrhea, constipation, melena, hematochezia, other Genitourinary: denies: dysuria, frequency, incontinence, hematuria, retention, other Musculoskeletal: denies: neck pain, shoulder pain, arm pain, back pain, hand pain, leg pain, foot pain, other Skin: denies: rash, lesions, carlyle, bruising, other Neurological: denies: weakness, numbness, incoordination, change in speech, confusion, seizures, other Hospitalist History - Past Medical History Source: patient Cardiac: reports: HTN Pulmonary: reports: no pertinent history [employer]: reports: no pertinent history Gastrointestinal: reports: no pertinent history Heme/Onc: reports: no pertinent history Hepatobiliary: reports: no pertinent history Psych: reports: no pertinent history Musculoskeletal: reports: no pertinent history Infectious Disease: reports: Other (Chronic left foot infection) ENT: reports: no pertinent history Renal/: reports: no pertinent history Endocrine: reports: no pertinent history Dermatology: reports: no pertinent history - Past Surgical History Past Surgical History: reports: Other (prior history of ex lap of abdomen after trauma over 40 years ago) - Family History Family History: reports: no pertinent history - Social History Smoking Status: Current every day smoker Alcohol: reports: None Drugs: reports: none Living Situation: Alone Activity level: independent ambulation - Exam General Appearance: NAD, awake alert Eye: PERRL, anicteric sclera ENT: normocephalic atraumatic, no oropharyngeal lesions, moist mucosa Neck: supple, symmetric, no JVD, no thyromegaly, no lymphadenopathy, no carotid bruit Heart: RRR, no murmur, no gallops, no rubs, normal peripheral pulses Respiratory: CTAB, no wheezes, no rales, no ronchi, normal chest expansion, no tachypnea, normal percussion Gastrointestinal: soft, non-tender, non-distended, normal bowel sounds, no palpable masses, no hepatomegaly, no splenomegaly, no bruit Extremities: no cyanosis, no clubbing, no edema Extremities - other findings: Generalized non-pitting edema of left lower extremity Skin: normal turgor, no lesions, no rashes Skin - other findings: Dorsal foot wound of left lower extremity with drainage of yellowish materi Neurological: cranial nerve grossly intact, normal sensation to touch, no weakness, no focal deficits, no new deficit Musculoskeletal: normal tone, normal strength, no muscle wasting Psychiatric: normal affect, normal behavior, A&O x 3 Hospitalist Results - Labs Result Diagrams: 04/23/19 14:49 04/23/19 14:50 Lab results: WBC 23.0 thou/uL (4.8-10.8) H 04/23/19 14:49 Hgb 16.1 g/dL (14.0-18.0) 04/23/19 14:49 Hct 49.3 % (42.0-52.0) 04/23/19 14:49 MCV 84.3 fL (78.0-98.0) 04/23/19 14:49 Plt Count 226 thou/uL (130-400) 04/23/19 14:49 Band Neuts % (Manual) 9 % (5-11) 04/23/19 14:49 Sodium 133 mmol/L (136-145) L 04/23/19 14:50 Potassium 4.2 mmol/L (3.5-5.1) 04/23/19 14:50 Chloride 101 mmol/L (98-107) 04/23/19 14:50 Carbon Dioxide 22 mmol/L (23-31) L 04/23/19 14:50 BUN 16 mg/dL (8.4-25.7) 04/23/19 14:50 Creatinine 0.96 mg/dL (0.7-1.3) 04/23/19 14:50 Glucose 106 mg/dL (80-115) 04/23/19 14:50 Lactic Acid 1.4 mmol/L (0.5-2.2) 04/23/19 14:50 Calcium 9.5 mg/dL (7.8-10.44) 04/23/19 14:50 Total Bilirubin 0.8 mg/dL (0.2-1.2) 04/23/19 14:50 AST 18 U/L (5-34) 04/23/19 14:50 ALT 21 U/L (8-55) 04/23/19 14:50 Alkaline Phosphatase 68 U/L (40-110) 04/23/19 14:50 Creatine Kinase 18 U/L (30-200) L 04/23/19 14:50 CK-MB (CK-2) 0.7 ng/mL (0-6.6) 04/23/19 14:50 Troponin I 0.033 ng/mL (< 0.028) H 04/23/19 14:50 Serum Total Protein 6.9 g/dL (5.8-8.1) 04/23/19 14:50 Albumin 3.7 g/dL (3.4-4.8) 04/23/19 14:50 Lipase 13 U/L (8-78) 04/23/19 14:50 Urine Ketones Negative mg/dL (Negative) 04/23/19 15:26 Urine Blood Negative (Negative) 04/23/19 15:26 Urine Nitrite Negative (Negative) 04/23/19 15:26 Ur Leukocyte Esterase Negative Ryne/uL (Negative) 04/23/19 15:26 Urine RBC 0-3 HPF (0-3) 04/23/19 15:26 Urine WBC 0-3 HPF (0-3) 04/23/19 15:26 Ur Squamous Epith Cells None Seen HPF (0-3) 04/23/19 15:26 Urine Bacteria None Seen HPF (None Seen) 04/23/19 15:26 - EKG Interpretation EKG: Sinus tachycardia, no acute st-t wave changes - Radiology Interpretation Other Status: report reviewed by me Additional Comment: CT left lower extremity Hospitalist H&P A/P - Problem (1) Left leg cellulitis Code(s): L03.116 - CELLULITIS OF LEFT LOWER LIMB Status: Acute (2) Wound of foot Code(s): S91.309A - UNSPECIFIED OPEN WOUND, UNSPECIFIED FOOT, INITIAL ENCOUNTER Status: Acute (3) Sepsis Code(s): A41.9 - SEPSIS, UNSPECIFIED ORGANISM Status: Acute (4) Hypertension Code(s): I10 - ESSENTIAL (PRIMARY) HYPERTENSION Status: Chronic (5) Morbid obesity Code(s): E66.01 - MORBID (SEVERE) OBESITY DUE TO EXCESS CALORIES Status: Chronic (6) Smoker Code(s): F17.200 - NICOTINE DEPENDENCE, UNSPECIFIED, UNCOMPLICATED Status: Chronic (7) Deep vein thrombosis Code(s): I82.409 - ACUTE EMBOLISM AND THOMBOS UNSP DEEP VN UNSP LOWER EXTREMITY Status: Chronic - Plan Plan: Admit to medical for management of cellulitis/sepsis of left lower extremity. Greater than 2 midnight likely for evaluation and treatment Empiric Vancomycin and Zosyn for sepsis EGDT in ED complete, with 2L of NS given, continue running rate Blood and wound culture Consult podiatry and wound care for evaluation of left lower extremity wound Continue Xarelto from home US reviewed, no evidence of thrombus identified in LLE Code Status: Full Disposition: Admit for management of cellulitis and sepsis.
[2019-04-23] MEDS ORDERED: Piperacillin/Tazobactam 4.5 GM in Sodium Chloride 0.9% 100 ML IVPB SCH (18:00)
[2019-04-23] MEDS ORDERED: Rivaroxaban 10 MG TAB PO SCH (18:00)
[2019-04-23 18:19] LABS: Troponin I Less than 0.010 ng/mL (< 0.028)
[2019-04-23] MEDS ORDERED: Acetaminophen 500 MG TAB ONE (19:39)
[2019-04-23 20:46] VITALS: BMI 42.1
[2019-04-23] MEDS ORDERED: Vancomycin HCl 1 GM in Sodium Chloride 0.9% 250 ML 250 ML IVPB SCH (21:00)
[2019-04-23] MEDS ORDERED: Vancomycin 1.5 GRAM/300 ML BAG 1.5 GM in Premix Bag 1 BAG IVPB SCH (21:30)
[2019-04-23] MEDS: Aspirin 81 mg Enteric Coated Tablet PO SCH (21:40)
[2019-04-23] MEDS: Sodium Chloride 0.9% 1,000 ML IV SCH (21:56)
[2019-04-23] MEDS: Piperacillin/Tazobactam 4.5 GM in Sodium Chloride 0.9% 100 ML IVPB SCH (21:57)
[2019-04-23 22:21] LABS: Troponin I 0.038 ng/mL (< 0.028)
[2019-04-24] MEDS: Piperacillin/Tazobactam 4.5 GM in Sodium Chloride 0.9% 100 ML IVPB SCH ×4 (05:01→21:00)
[2019-04-24] MEDS: Sodium Chloride 0.9% 1,000 ML IV SCH ×2 (05:02→10:52)
[2019-04-24 06:28] LABS: Band 5 % (5-11); Hemoglobin 14.9 g/dL (14.0-18.0); Lymphocytes 1 % (21-51); MDiff Complete? YES; Mean Corpuscular HGB CONC 32.6 g/dL (32.0-36.0); Mean Corpuscular Hemoglobin 27.6 pg (27.0-31.0); Mean Corpuscular Volume 84.9 fL (78.0-98.0); Mean Platelet Volume 8.8 fL (7.4-10.4); Monocytes 12 % (0-10); Neutrophil 82 % (42-75); Platelet Count 191 thou/uL (130-400); Platelet Morphology Comment Appears Adequate; RBC Distribution Width 15.6 % (11.5-14.5); RBC Morphology Normal; Red Blood Cell (RBC) Count 5.39 mill/uL (4.70-6.10); White Blood Cell (WBC) Count 15.6 thou/uL (4.8-10.8)
[2019-04-24 06:39] LABS: ALT (SGPT) 15 U/L (8-55); AST (SGOT) 17 U/L (5-34); Albumin 3.5 g/dL (3.4-4.8); Alkaline Phosphatase 67 U/L (40-110); Anion Gap 12 mmol/L (10-20); BUN (Urea Nitrogen) 17 mg/dL (8.4-25.7); Bilirubin, Total 0.7 mg/dL (0.2-1.2); Calc. Creatinine Clearance 159 mL/min (70-130); Calcium 9.5 mg/dL (7.8-10.44); Carbon Dioxide 25 mmol/L (23-31); Chloride 101 mmol/L (98-107); Estimated GFR-MDRD 67; Globulin 3.2 g/dL (2.4-3.5); Glucose 103 mg/dL (80-115); Potassium 4.1 mmol/L (3.5-5.1); Protein, Total 6.7 g/dL (5.8-8.1); Sodium 134 mmol/L (136-145)
[2019-04-24] MEDS: Bupropion 150 MG XL TAB PO SCH (08:35)
--- NOTE | 2019-04-24 11:35 | PDOC.HOSPP ---
- Subjective Encounter Date: 04/24/19 (f/u sepsis) Encounter Time: 11:33 Subjective: Pt without complaints today - states he feels better today, denies any chills/ body aches that were present yesterday. He denies any sensation in left lower extremity - states ongoing and a chronic left foot wound. - Objective Vital Signs & Weight: Vital Signs (12 hours) Temp Pulse Resp BP Pulse Ox 04/24/19 07:45 98.0 F 87 22 H 105/53 L 92 L 04/24/19 04:17 100.0 F H 109 H 20 133/63 95 04/24/19 00:00 99.8 F H 108 H 20 130/60 93 L Weight Admit Weight 364 lb 8 oz Weight 364 lb 8 oz Result Diagrams: 04/24/19 05:19 04/24/19 05:19 EKG Reviewed by me: Yes (tele - sinus 70-110's) Hospitalist ROS - Medication Medications: Active Medications Generic Name Dose Route Start Last Admin Trade Name Freq PRN Reason Stop Dose Admin Acetaminophen 650 mg 04/23/19 17:35 04/24/19 05:32 Tylenol PO 650 mg Q4H PRN Administration Headache/Fever/Mild Pain (1-3) Aspirin 81 mg 04/23/19 21:00 04/23/19 21:40 Ecotrin PO Not Given HS DAY Bupropion HCl 150 mg 04/24/19 09:00 04/24/19 08:35 Wellbutrin Xl PO 150 mg DAILY DAY Administration Vancomycin HCl 2 gm/ Sodium 500 mls @ 250 mls/hr 04/24/19 09:00 04/24/19 08: 35 Chloride IVPB 500 mls Q12HR DAY Administration Piperacillin Sod/Tazobactam 100 mls @ 200 mls/hr 04/23/19 22:00 04/24/19 10: 47 Sod 4.5 gm/ Sodium Chloride IVPB 100 mls 0400,1000,1600,2200 DAY Administration - Exam General Appearance: NAD Heart: RRR, no murmur, no gallops Respiratory: CTAB, no wheezes Gastrointestinal: soft, non-tender, non-distended, normal bowel sounds Extremities - other findings: left lower extremity - edematous, foot bandaged, erythema anteriorly Psychiatric: normal affect Hosp A/P (1) Sepsis Code(s): A41.9 - SEPSIS, UNSPECIFIED ORGANISM Status: Acute (2) Left leg cellulitis Code(s): L03.116 - CELLULITIS OF LEFT LOWER LIMB Status: Acute (3) Wound of foot Code(s): S91.309A - UNSPECIFIED OPEN WOUND, UNSPECIFIED FOOT, INITIAL ENCOUNTER Status: Acute (4) History of DVT (deep vein thrombosis) Code(s): Z86.718 - PERSONAL HISTORY OF OTHER VENOUS THROMBOSIS AND EMBOLISM Status: Acute (5) Hypertension Code(s): I10 - ESSENTIAL (PRIMARY) HYPERTENSION Status: Chronic (6) Morbid obesity Code(s): E66.01 - MORBID (SEVERE) OBESITY DUE TO EXCESS CALORIES Status: Chronic (7) Smoker Code(s): F17.200 - NICOTINE DEPENDENCE, UNSPECIFIED, UNCOMPLICATED Status: Chronic - Plan Sepsis/cellulitis/foot wound - change consult to Gen Surg as pt with PVD and hx of toe amputations. Pt reports he was offered amputation in the past and is ready to consider. - MRI foot - continue broad spectrum abx - follow cx Tobacco use - nicotine patch d/c IVF as pt taking PO dvt prophy - fully anti-coag on Xarelto gi prophy - not indicated code status full reviewed plan of care with patient, no questions or further needs at end of eval
[2019-04-24] MEDS ORDERED: Nicotine 21 MG PATCH TD SCH (12:00)
[2019-04-24] MEDS: Rivaroxaban 10 MG TAB PO SCH (17:27)
[2019-04-24] MEDS: Aspirin 81 mg Enteric Coated Tablet PO SCH (21:01)
[2019-04-25 04:48] LABS: #Eosinphils 0.4 thou/uL (0.0-0.7); #Lymphocytes 0.8 thou/uL (1.20-3.40); #Monocytes 0.8 thou/uL (0.11-0.59); #Neutrophils 5.5 thou/uL (1.40-6.50); %Basophils 0.4 % (0.0-1.0); %Eosinophils 5.3 % (0.0-10.0); %Monocytes 10.4 % (0.0-10.0); %Neutrophils 72.8 % (42.0-75.0); Hemoglobin 14.1 g/dL (14.0-18.0); Mean Corpuscular HGB CONC 32.9 g/dL (32.0-36.0); Mean Corpuscular Hemoglobin 28.1 pg (27.0-31.0); Mean Corpuscular Volume 85.5 fL (78.0-98.0); Mean Platelet Volume 8.8 fL (7.4-10.4); Platelet Count 169 thou/uL (130-400); RBC Distribution Width 15.6 % (11.5-14.5); Red Blood Cell (RBC) Count 5.02 mill/uL (4.70-6.10); White Blood Cell (WBC) Count 7.5 thou/uL (4.8-10.8)
[2019-04-25] MEDS: Piperacillin/Tazobactam 4.5 GM in Sodium Chloride 0.9% 100 ML IVPB SCH ×2 (04:59→09:33)
[2019-04-25 05:05] LABS: Anion Gap 10 mmol/L (10-20); BUN (Urea Nitrogen) 17 mg/dL (8.4-25.7); Calc. Creatinine Clearance 165 mL/min (70-130); Carbon Dioxide 30 mmol/L (23-31); Chloride 105 mmol/L (98-107); Estimated GFR-MDRD 70; Glucose 108 mg/dL (80-115); Potassium 4.1 mmol/L (3.5-5.1); Sodium 141 mmol/L (136-145)
[2019-04-25 08:33] LABS: Vancomycin, Trough 16.5 ug/mL
[2019-04-25] MEDS: Nicotine 21 MG PATCH TD SCH (09:32)
[2019-04-25] MEDS: Bupropion 150 MG XL TAB PO SCH (09:36)
--- NOTE | 2019-04-25 13:15 | PDOC.HOSPP ---
- Subjective Encounter Date: 04/25/19 (f/u sepsis) Encounter Time: 13:12 Subjective: Patient was admitted for sepsis secondary to left lower extremity cellulitis with open foot wound. pt denies any pain/n/v/diarrhea or other concerns. Reports his left leg was tender yesterday - resolved, the redness has decreased - Objective Vital Signs & Weight: Vital Signs (12 hours) Temp Pulse Resp BP Pulse Ox 04/25/19 12:05 97.6 F 73 18 124/58 L 96 04/25/19 08:03 97.6 F 80 18 128/62 96 04/25/19 03:14 98 F 84 16 145/66 H 94 L Weight Admit Weight 364 lb 8 oz Weight 366 lb 1 oz I&O: 04/24/19 04/25/19 04/26/19 06:59 06:59 06:59 Intake Total 840 Output Total 500 Balance 340 Result Diagrams: 04/25/19 04:11 04/25/19 04:11 Additional Labs: 1 set of positive blood culture - gram positive cocci foot wound cx - Staph Aureus EKG Reviewed by me: Yes (tele - sinus 70-80's) Hospitalist ROS - Medication Medications: Active Medications Generic Name Dose Route Start Last Admin Trade Name Freq PRN Reason Stop Dose Admin Acetaminophen 650 mg 04/23/19 17:35 04/24/19 05:32 Tylenol PO 650 mg Q4H PRN Administration Headache/Fever/Mild Pain (1-3) Aspirin 81 mg 04/23/19 21:00 04/24/19 21:01 Ecotrin PO 81 mg HS DAY Administration Bupropion HCl 150 mg 04/24/19 09:00 04/25/19 09:36 Wellbutrin Xl PO Not Given DAILY DAY Vancomycin HCl 2 gm/ Sodium 500 mls @ 250 mls/hr 04/24/19 09:00 04/25/19 09: 33 Chloride IVPB 500 mls Q12HR DAY Administration Piperacillin Sod/Tazobactam 100 mls @ 200 mls/hr 04/23/19 22:00 04/25/19 09: 33 Sod 4.5 gm/ Sodium Chloride IVPB 100 mls 0400,1000,1600,2200 DAY Administration Nicotine 21 mg 04/25/19 09:00 04/25/19 09:32 Nicoderm Patch TD 21 mg DAILY DAY Administration Rivaroxaban 20 mg 04/24/19 17:00 04/24/19 17:27 Xarelto PO 20 mg 1700 DAY Administration - Exam General Appearance: NAD Heart: RRR, no murmur Respiratory: CTAB, no wheezes, no rales, no ronchi Gastrointestinal: soft, non-tender, non-distended, normal bowel sounds Extremities - other findings: 3+ edema in LLE with mild erythema medial aspect of calf. foot bandaged Musculoskeletal: normal tone Psychiatric: normal affect Hosp A/P (1) Sepsis Code(s): A41.9 - SEPSIS, UNSPECIFIED ORGANISM Status: Acute (2) Left leg cellulitis Code(s): L03.116 - CELLULITIS OF LEFT LOWER LIMB Status: Acute (3) Wound of foot Code(s): S91.309A - UNSPECIFIED OPEN WOUND, UNSPECIFIED FOOT, INITIAL ENCOUNTER Status: Acute (4) History of DVT (deep vein thrombosis) Code(s): Z86.718 - PERSONAL HISTORY OF OTHER VENOUS THROMBOSIS AND EMBOLISM Status: Acute (5) Hypertension Code(s): I10 - ESSENTIAL (PRIMARY) HYPERTENSION Status: Chronic (6) Morbid obesity Code(s): E66.01 - MORBID (SEVERE) OBESITY DUE TO EXCESS CALORIES Status: Chronic (7) Smoker Code(s): F17.200 - NICOTINE DEPENDENCE, UNSPECIFIED, UNCOMPLICATED Status: Chronic - Plan Sepsis/cellulitis/foot wound - change consult to Gen Surg/Dr. 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
[2019-04-25] MEDS: cefTRIAXone\\ROCEPHIN 1 GM in Sodium Chloride 0.9% 100 ML IVPB SCH (16:29)
[2019-04-25] MEDS: Rivaroxaban 10 MG TAB PO SCH (16:31)
[2019-04-25] MEDS: Aspirin 81 mg Enteric Coated Tablet PO SCH (20:22)
--- NOTE | 2019-04-25 20:35 | ULT ---
ARTERIAL DOPPLER ULTRASOUND OF THE LEFT LOWER EXTREMITY: Date: 04-25-19 Comparison: None. History: Pain, assess arterial blood flow within the left lower extremity. Technique: Multiplanar grayscale sonographic imaging of the arterial structures of the left lower ext remity obtained with color flow and spectral analysis. FINDINGS: Left common femoral artery is patent and demonstrates a triphasic waveform. Left profunda femoral art gautam is patent and demonstrates a biphasic waveform. The left superficial femoral artery proximally, in its midportion, and distally demonstrates patency with a normal triphasic waveform. There is a normal left popliteal and left posterior tibial artery t riphasic waveform proximally. The left posterior tibial artery is not visualized in its midportion wh ich could signify occlusion of the left posterior tibial artery in the midcalf region. Left anterior tibial artery is patent demonstrating a triphasic waveform. VESSEL Peak Systolic Velocity (cm/sec) Common femoral artery 102 SFA proximal 121 SFA mid 85 SVA distal 98 Popliteal 63 Posterior tibial artery 75 Anterior tibial artery 102 IMPRESSION: Patent arterial structures of the left lower extremity aside from the mid left posterior tibial arter y which may be occluded in the midcalf region. POS: [facility]
--- NOTE | 2019-04-25 21:38 | CON ---
DATE OF CONSULTATION: 04/25/2019 REASON FOR CONSULTATION: Left lower extremity inflammatory process. HISTORY OF PRESENT ILLNESS: A 63-year-old, history of thromboembolism with PE in the 70s and bilateral DVT, chronic smoking, polycythemia, chronic venous insufficiency in lower extremities and post phlebitic syndrome who developed fairly sudden onset of chills and some altered mental status, dizziness and pain in the left leg. The patient was brought in and initial findings with BP 120/70, pulse 124, temperature 100.3, O2 saturation 94. The exam findings showed normal heart and lung examination, as well as normal abdominal examination. The lower extremity showed erythema with tenderness and a finding of stasis dermatitis. White cell count is 23,000, hemoglobin, platelets 226 with 78% neutrophils and a creatinine of 0.96. Sodium of 133 with a normal liver profile. CK was 18. Albumin 3.7. The patient had 2 sets of blood cultures, 1/ 2 positive for gram-positive cocci. The organism is not identified as either Staphylococcus or Streptococcus, could be a contaminant. There is also a sample obtained from a foot wound, this is a surface swab. It appears to be with a few gram-positive cocci identified. The patient had a CT of the extremity, which did not show any evidence of soft tissue gas at the distal right thigh overlying the medial femoral condyle. There is a partially imaged fluid density probably joint fluid. There is skin thickening and edema of the leg, but no osseous destructive changes and he has multiple digit partial amputations from past procedures. The patient has been given Zosyn and vancomycin. Currently, he is awake and alert, feels much improved. No headaches, visual symptoms, sore throat, odynophagia, or dysphagia. No chest pain or dyspnea. No abdominal pain or diarrhea. No genitourinary symptoms. The pain in the left leg has improved quite a bit at least 50%. No neurological symptoms. PAST MEDICAL HISTORY: Obesity, chronic smoking, polycythemia, prior thromboembolism with both DVT and pulmonary embolism on Xarelto, venous insufficiency and post phlebitic syndrome, has had partial amputations of toes on the left side. There is a concern with peripheral vascular disease, but a CT angio did not show any obstructive changes of significance, this was done in 2018. He has a lesion in the right kidney, which was supposed to be followed by Dr. Loomis in the outpatient setting. ALLERGY HISTORY: Negative. CURRENT MEDICATIONS: 1. Zosyn. 2. Vancomycin. 3. Bupropion. 4. Nicotine. 5. Zofran. FAMILY HISTORY: Noncontributory. SOCIAL HISTORY: Current smoker. 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 PHYSICAL EXAMINATION: VITAL SIGNS: T-max 102 on arrival, he is defervesced now. SKIN: Shows post phlebitic changes in the lower extremities, particularly on the left. There is an open wound in the dorsal aspect of the left foot with 100% granulation tissue. No undermining and hyperpigmentation surrounding the area. The wound the has improved markedly over the past few months. He used to have tendon exposure reportedly. The patient has area of erythema, now restricted to the posterior regions of the left calf skin. Peripheral IV access. No Bermudez catheter. No lymphadenopathy. HEENT: Ocular movements conjugate. Nasal passages patent. Oral cavity normal. NECK: Supple. No jugular vein distention. LUNGS: Symmetric clear breath sounds. S1-S2 regular rate. No S3 or S4. ABDOMEN: Soft, not distended or tender. No ascites. No bladder distention, no joint inflammatory activity noted. EXTREMITIES: Pulses are 1+ in dorsalis pedis. Nonpitting edema in lower extremities. LABORATORY DATA: White cell count is down to 7.5, hemoglobin 14, platelets 169 with 72% neutrophils. Creatinine is at 1.1. Liver profile normal. Microbiology discussed. ASSESSMENT: 1. Obesity. 2. Chronic smoking. 3. History of polycythemia in the past, which has improved after he discontinued testosterone injections and cut down his smoking habit. 4. Episodes of thromboembolism with deep venous thrombosis and postphlebitic syndrome. 5. Chronic wound dorsal aspect of the left foot with marked improvement over the past few months and no evidence of inflammatory changes at this time. 6. Cellulitis of the right leg. DISCUSSION: The clinical findings are consistent with acute beta-hemolytic streptococcal cellulitis of the right lower extremity. There is no evidence of abscess formation. The foot wound could be the port of entry, but I do not think that there is any evidence of decompensation of that wound at this time, has nice granulation base without inflammatory changes. Overall, he does not appear that this requires any surgical intervention. I think that Rocephin and then transition to oral Keflex and then, chronic suppressive Pen-Vee K 250 mg twice daily for 6 to 12 months plus compressive stockings would be recommended. Job ID: [id number] [facility]
[2019-04-26 05:32] LABS: #Eosinphils 0.6 thou/uL (0.0-0.7); #Lymphocytes 1.2 thou/uL (1.20-3.40); #Monocytes 0.6 thou/uL (0.11-0.59); #Neutrophils 4.7 thou/uL (1.40-6.50); %Basophils 0.4 % (0.0-1.0); %Eosinophils 8.1 % (0.0-10.0); %Monocytes 8.3 % (0.0-10.0); %Neutrophils 66.2 % (42.0-75.0); Hemoglobin 14.4 g/dL (14.0-18.0); Mean Corpuscular HGB CONC 32.2 g/dL (32.0-36.0); Mean Corpuscular Hemoglobin 27.7 pg (27.0-31.0); Mean Corpuscular Volume 86.2 fL (78.0-98.0); Platelet Count 185 thou/uL (130-400); RBC Distribution Width 15.7 % (11.5-14.5); Red Blood Cell (RBC) Count 5.19 mill/uL (4.70-6.10); White Blood Cell (WBC) Count 7.2 thou/uL (4.8-10.8)
[2019-04-26 06:02] LABS: Anion Gap 12 mmol/L (10-20); BUN (Urea Nitrogen) 13 mg/dL (8.4-25.7); Calc. Creatinine Clearance 209 mL/min (70-130); Calcium 9.2 mg/dL (7.8-10.44); Carbon Dioxide 25 mmol/L (23-31); Chloride 106 mmol/L (98-107); Estimated GFR-MDRD Greater than 90; Glucose 99 mg/dL (80-115); Potassium 4.5 mmol/L (3.5-5.1); Sodium 138 mmol/L (136-145)
[2019-04-26] MEDS: Nicotine 21 MG PATCH TD SCH (09:07)
[2019-04-26] MEDS: Bupropion 150 MG XL TAB PO SCH (09:18)
--- NOTE | 2019-04-26 10:55 | PDOC.HOSPP ---
- Subjective Encounter Date: 04/26/19 Encounter Time: 16:30 Subjective: Patient with soreness to LLE, redness maybe a bit better, no more fever or chills. - Objective Vital Signs & Weight: Vital Signs (12 hours) Temp Pulse Resp BP BP Pulse Ox 04/26/19 09:07 95 04/26/19 07:12 98.5 F 73 20 135/80 95 04/26/19 04:54 98.1 F 76 14 127/78 94 L 04/26/19 00:00 98.1 F 76 16 124/68 95 Weight Admit Weight 364 lb 8 oz Weight 366 lb 1 oz I&O: 04/25/19 04/26/19 04/27/19 06:59 06:59 06:59 Intake Total 840 720 Output Total 500 Balance 340 720 Result Diagrams: 04/26/19 05:02 04/26/19 05:02 Hospitalist ROS - Review of Systems Constitutional: denies: fever, chills Respiratory: denies: cough, dry, shortness of breath Cardiovascular: denies: chest pain, palpitations, orthopnea Gastrointestinal: denies: nausea, vomiting, abdominal pain - Medication Medications: Active Medications Generic Name Dose Route Start Last Admin Trade Name Freq PRN Reason Stop Dose Admin Acetaminophen 650 mg 04/23/19 17:35 04/24/19 05:32 Tylenol PO 650 mg Q4H PRN Administration Headache/Fever/Mild Pain (1-3) Aspirin 81 mg 04/23/19 21:00 04/25/19 20:22 Ecotrin PO 81 mg HS DAY Administration Bupropion HCl 150 mg 04/24/19 09:00 04/26/19 09:18 Wellbutrin Xl PO Not Given DAILY DAY Ceftriaxone Sodium 1 gm/ 100 mls @ 200 mls/hr 04/25/19 15:45 04/25/19 16:29 Sodium Chloride IVPB 100 mls Q24HR DAY Administration Nicotine 21 mg 04/25/19 09:00 04/26/19 09:07 Nicoderm Patch TD 21 mg DAILY DAY Administration Rivaroxaban 20 mg 04/24/19 17:00 04/25/19 16:31 Xarelto PO 20 mg 1700 DAY Administration - Exam General Appearance: NAD Eye: anicteric sclera ENT: moist mucosa Heart: RRR, no murmur, no gallops, no rubs Respiratory: CTAB, no wheezes, no rales Gastrointestinal: soft, non-tender, non-distended Extremities: 2+ LE edema Extremities - other findings: LLE with redness and TTP lower calf, sore on foot with dressing in place Psychiatric: normal affect, normal behavior, A&O x 3 Hosp A/P - Plan continue antibiotics (1) Sepsis- resolved (2) Left leg cellulitis - appreciate Dr. Bassam crain, likely beta-hemolytic strep - plan for Rocephin --> Keflex and then Pen VK suppression for 6-12 months afterward - compression stocking when go home (3) Wound of foot - surgery consulted, appears healing well per Dr. Banegas (4) History of DVT (deep vein thrombosis) - on Xarelto (5) Hypertension -chronic (6) Morbid obesity (7) Smoker Patient improving, no longer septic, can likely transition to oral antibiotics and go home tomorrow. He is very comfortable with wound care for his foot so no need to set up outpatient wound care.
[2019-04-26] MEDS: cefTRIAXone\\ROCEPHIN 1 GM in Sodium Chloride 0.9% 100 ML IVPB SCH (15:27)
[2019-04-26] MEDS: Rivaroxaban 10 MG TAB PO SCH (16:53)
[2019-04-26] MEDS: Aspirin 81 mg Enteric Coated Tablet PO SCH (20:18)
--- NOTE | 2019-04-26 22:21 | CON ---
DATE OF CONSULTATION: HISTORY OF PRESENT ILLNESS: Arash Luu is a 63-year-old male, who over 20 years ago excised ruptured varicosities in his right groin. He suffers chronic venous insufficiency in the last 40 years. He uses chronic venous support stockings at home. He has severe left leg edema from chronic venous insufficiency. He has palpable pedal pulses. I have been asked to see him regarding the wound over the dorsum of his foot. This wound has been there chronically and in fact it is healing, granulating. There is no intervention necessary. Dr. 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 I have not seen him in more than [address] Banegas has seen him. PHYSICAL EXAMINATION: VITAL SIGNS: 6 feet 6 inches, 266 pounds, 42 of BMI, 98 degrees, and 127/75. LUNGS: Clear to auscultation. CARDIAC: Regular rate and rhythm. ABDOMEN: Soft, nontender, obese. EXTREMITIES: Palpable femoral, popliteal, and pedal pulses. Chronic venous insufficiency changes in left leg with hyperpigmentation and stasis dermatitis. Dorsum left foot wound granulating healthy without infection, about 4 cm in diameter. ASSESSMENT AND PLAN: Chronic venous stasis wound, left foot. It is healing and improving. There is no intervention necessary. At this point, I will see him as needed. He can resume his diet, resume his anticoagulation. I will see him as needed. The patient is ready for discharge home at anytime from a surgical standpoint. Job ID: [id number]
[2019-04-27 08:13] VITALS: BP 146/85; TEMP 97.7
[2019-04-27] MEDS: Nicotine 21 MG PATCH TD SCH (08:32)
[2019-04-27] MEDS: Bupropion 150 MG XL TAB PO SCH (08:47)
[2019-04-27] MEDS ORDERED: Cephalexin 250 MG CAP PO SCH ×2 (11:00→21:00)
--- NOTE | 2019-04-27 11:39 | DIS ---
DATE OF ADMISSION: 04/23/2019 DATE OF DISCHARGE: 04/27/2019 TIME OF DISCHARGE: 10:45 a.m. DISCHARGE DIAGNOSES: 1. Left leg cellulitis. 2. Chronic wound of left foot. 3. History of deep venous thrombosis. 4. Sepsis, resolved. 5. Hypertension. 6. Morbid obesity. 7. Smoker. CONSULTING PHYSICIANS: 1. Dr. Banegas, Infectious Disease. 2. Dr. Mary, General Surgery HOSPITAL COURSE: Mr. Luu is a very pleasant 63-year-old gentleman with a history of chronic venous insufficiency and long-standing left leg edema, usually controlled with compression stockings, who has a chronic wound on the dorsum of his foot. He presented feeling generally unwell, which had progressed over several days. He then developed chills and some altered mental status. He was noted to have significant redness and pain to the left lower extremity with a white count of 23,000. He had blood cultures that were positive for gram-positive cocci, one of two. It was felt to be a possible contaminant sample due to not being identified as Staphylococcus or Streptococcus. There was a culture done from the foot wound which showed gram-positive cocci. The patient did have CT imaging done of the lower extremity on arrival to the emergency department on 04/23/2019, which demonstrated generalized edema involving the left leg with some irregularity with overlying bandaging. There was no evidence of bony involvement. The patient was started on IV antibiotics with Zosyn and vancomycin. Consultation was placed to Dr. Banegas, who recommended Rocephin. The patient received this and had significant improvement. Dr. Banegas made recommendations to transition the patient to oral Keflex 500 mg by mouth twice daily for 10 days to be followed by chronic suppressive Pen-Vee K 250 mg twice daily for 6 to 12 months. He also recommended to resume compressive stockings. The patient does have a history of DVT and has been on anticoagulation with Xarelto. His more recent laboratory study showed a normal white count of 7.2 compared to 15.6 on 04/24. Electrolytes unremarkable. Renal function significantly improved with a creatinine of 0.84, BUN 13, and GFR greater than 90 as compared to 67 on initial presentation. General Surgery was consulted and the patient was seen by Dr. Mary, who felt that the wound involving the left foot dorsum was healing and improving with no surgical intervention needed. Dr. Mary recommended he could see him as needed, but no followup necessary at this time, and he cleared him for discharge. The patient is feeling great today without any complaints. He continues to tolerate an oral diet. He has been mobilizing around the room without any lightheadedness. Denies any chest pain or shortness of breath. He states he feels much more energetic than he had been feeling several days leading up to his admission. He continues with some lower extremity swelling in the left leg, but this is improving since the compression stocking has been reapplied. The patient is seen by Wound Care this morning and he states he did redo the dressing and feels more confident taking care of wound care himself at home. This has been cleared by Dr. Solis, who saw him yesterday, therefore there will be no need to set up outpatient wound care. The patient is very eager for discharge home and again with no complaints. PHYSICAL EXAMINATION: GENERAL: The patient appears well developed, well nourished, who is in no acute distress. VITAL SIGNS: Temperature 97.7, pulse 74, respirations 20, O2 saturation 93% on room air, blood pressure 146/85. HEENT: Normocephalic and atraumatic. Pupils are equal, round, and reactive to light. Sclerae without icterus. Oropharynx is clear. NECK: Supple. LUNGS: Clear to auscultation bilaterally without wheezes, rales, rhonchi. CARDIAC: Regular rate and rhythm. ABDOMEN: Obese, soft, nontender, nondistended. Normoactive bowel sounds present. No guarding or rigidity. EXTREMITIES: Chronic venous stasis evident with left lower extremity swelling and compression stocking in place. NEUROLOGIC: Alert and oriented x3. No focal deficits. SKIN: Warm and dry. ACTIVITY: As tolerated. DIET: Heart healthy. FOLLOWUP: The patient to follow up with his primary care physician within 72 hours. Follow up with Dr. Banegas in 7 to 10 days. DISCHARGE MEDICATIONS: 1. Aspirin. 2. Xarelto. 3. Keflex 250 mg p.o. twice daily x10 days. 4. Will need prescription from his primary care physician or Dr. Banegas for chronic suppressive Pen-Vee K 250 mg twice daily for 6 to 12 months as per recommendations by Dr. Banegas. This will be started following completion of course of Keflex. DISPOSITION: The patient medically cleared for discharge home on 04/27/2019. The patient's case reviewed with both Dr. Banegas and Dr. Solis prior to discharge who were in agreement with plan as above. Job ID: [id number] [id number]
== END 2019-04-27 11:50 | disposition home or self-care (01) | DRG 872 ==
LOC: ERS 13:12 → 2NO 20:29 → EEVIPCON 20:29 → SURG A 04-25 18:23
PROVIDERS: ADMIT Internal Medicine; ATTEND Internal Medicine
DX: A41.9 Sepsis, unspecified organism (principal); L03.116 Cellulitis of left lower limb; Z68.41 Body mass index [BMI] 40.0-44.9, adult; I10 Essential (primary) hypertension; F17.200 Nicotine dependence, unspecified, uncomplicated; E66.01 Morbid (severe) obesity due to excess calories; B96.89 Other specified bacterial agents as the cause of diseases classified elsewhere; Z89.422 Acquired absence of other left toe(s); Z86.711 Personal history of pulmonary embolism; Z89.421 Acquired absence of other right toe(s); Z86.718 Personal history of other venous thrombosis and embolism
CPT/HCPCS: 36415; 71045; 80048; 80053; 80202; 81003; 81015; 82550; 82553; 83605; 83690; 84484; 85007; 85025; 85027; 87040; 87070; 87077; 87149; 87186; 87205; 87804; 93005; 93923; 96361; 96365; 96367; J0696; J2185; J2543; J3370; J3490; J7050

== ENCOUNTER 2021-03-01 13:48 | Inpatient (IN) | payer MEDICARE, OTHER ==
[2021-03-01] MEDS ORDERED: Acetaminophen 500 MG TAB ONE (14:12)
[2021-03-01] MEDS ORDERED: Cefepime 2 GM VIAL ONE (14:51)
[2021-03-01 15:12] LABS: #Eosinphils 0.1 thou/uL (0.0-0.7); #Lymphocytes 0.6 thou/uL (1.20-3.40); #Monocytes 0.5 thou/uL (0.11-0.59); #Neutrophils 8.4 thou/uL (1.40-6.50); %Basophils 0.3 % (0.0-1.0); %Eosinophils 1.1 % (0.0-10.0); %Lymphocytes 6.6 % (21.0-51.0); %Monocytes 4.9 % (0.0-10.0); %Neutrophils 87.1 % (42.0-75.0); Hemoglobin 16.9 g/dL (14.0-18.0); Mean Corpuscular HGB CONC 33.4 g/dL (32.0-36.0); Mean Corpuscular Hemoglobin 28.1 pg (27.0-31.0); Mean Corpuscular Volume 84.3 fL (78.0-98.0); Platelet Count 213 thou/uL (130-400); RBC Distribution Width 15.3 % (11.5-14.5); White Blood Cell (WBC) Count 9.6 thou/uL (4.8-10.8)
[2021-03-01 15:27] LABS: ALT (SGPT) 13 U/L (8-55); AST (SGOT) 11 U/L (5-34); Albumin 3.7 g/dL (3.4-4.8); Alkaline Phosphatase 69 U/L (40-110); Anion Gap 12 mmol/L (10-20); BUN (Urea Nitrogen) 16 mg/dL (8.4-25.7); Bilirubin, Total 1.1 mg/dL (0.2-1.2); Calc. Creatinine Clearance 0 mL/min (70-130); Calcium 10.1 mg/dL (7.8-10.44); Carbon Dioxide 30 mmol/L (23-31); Chloride 95 mmol/L (98-107); Globulin 3.5 g/dL (2.4-3.5); Glucose 106 mg/dL (80-115); Potassium 4.3 mmol/L (3.5-5.1); Protein, Total 7.2 g/dL (5.8-8.1); Sodium 133 mmol/L (136-145)
[2021-03-01 15:28] LABS: INR-International Normal Ratio 1.3; PTT 34.8 sec (22.9-36.1); Prothrombin Time 15.9 sec (12.0-14.7)
[2021-03-01] MEDS ORDERED: Vancomycin 1 GM/200 ML BAG ONE (15:50)
[2021-03-01] MEDS ORDERED: Acetaminophen 325 MG TAB PO PRN (17:37)
[2021-03-01] MEDS ORDERED: Metoclopramide HCl 10 MG/2 ML VIAL IVP PRN (17:42)
[2021-03-01] MEDS ORDERED: Artificial Tear Sol 15 ML BOT EA EYE PRN (17:42)
[2021-03-01 18:52] VITALS: BMI 42.0
[2021-03-01] MEDS ORDERED: Vancomycin 1.5 GRAM/300 ML BAG 1.5 GM in Premix Bag 1 BAG IVPB SCH (19:15)
[2021-03-02] MEDS: Cefepime 2 GM in Sodium Chloride 0.9% 100 ML IVPB SCH ×2 (02:40→16:35)
[2021-03-02 04:45] LABS: #Eosinphils 0.1 thou/uL (0.0-0.7); #Lymphocytes 0.7 thou/uL (1.20-3.40); #Monocytes 0.5 thou/uL (0.11-0.59); #Neutrophils 4.8 thou/uL (1.40-6.50); %Basophils 0.1 % (0.0-1.0); %Eosinophils 2.2 % (0.0-10.0); %Lymphocytes 11.2 % (21.0-51.0); %Monocytes 7.5 % (0.0-10.0); %Neutrophils 78.9 % (42.0-75.0); Hemoglobin 15.4 g/dL (14.0-18.0); Mean Corpuscular HGB CONC 32.8 g/dL (32.0-36.0); Mean Corpuscular Hemoglobin 27.8 pg (27.0-31.0); Mean Corpuscular Volume 84.7 fL (78.0-98.0); Mean Platelet Volume 9.2 fL (7.4-10.4); Platelet Count 153 thou/uL (130-400); RBC Distribution Width 15.3 % (11.5-14.5); Red Blood Cell (RBC) Count 5.52 mill/uL (4.70-6.10); White Blood Cell (WBC) Count 6.1 thou/uL (4.8-10.8)
[2021-03-02 05:11] LABS: Anion Gap 11 mmol/L (10-20); BUN (Urea Nitrogen) 16 mg/dL (8.4-25.7); Calc. Creatinine Clearance 165 mL/min (70-130); Calcium 9.4 mg/dL (7.8-10.44); Carbon Dioxide 26 mmol/L (23-31); Chloride 101 mmol/L (98-107); Glucose 108 mg/dL (80-115); Potassium 3.8 mmol/L (3.5-5.1); Sodium 134 mmol/L (136-145)
[2021-03-02 08:46] LABS: SARS-CoV-2 PCR by NAA Not Detected (NotDetected)
[2021-03-02] MEDS ORDERED: Enoxaparin Sodium 80 MG/0.8 ML SYRINGE SC SCH (09:00)
[2021-03-02] MEDS ORDERED: Non-Formulary Item 1 EACH (Levothyroxine Sodium [Levothyroxine] 50 MCG Capsule) PO SCH (09:00)
[2021-03-02] MEDS ORDERED: Enoxaparin Sodium 100 MG/ML SYRINGE SC SCH (09:00)
[2021-03-02] MEDS ORDERED: Sodium Chloride 0.9% 1,000 ML IV SCH (09:15)
[2021-03-02] MEDS: VANCOMYCIN 2 GRAM/400 ML BAG 2 GM in Premix Bag 1 BAG IVPB SCH (10:03)
[2021-03-02] MEDS: Sodium Chloride 0.9% 1,000 ML IV SCH (16:30)
[2021-03-02] MEDS: Nicotine 21 MG PATCH TD SCH (16:30)
[2021-03-02] MEDS ORDERED: Fentanyl 100 MCG/2 ML VIAL ONE (18:39)
[2021-03-02] MEDS ORDERED: Lidocaine 1% PF 5 ML VIAL ONE (21:04)
[2021-03-02] MEDS ORDERED: PROPOFOL 200 MG/20 ML VIAL ONE (21:04)
[2021-03-02] MEDS ORDERED: Dexamethasone 20 MG/5 ML VIAL ONE (21:04)
[2021-03-02] MEDS ORDERED: Ondansetron PF 4 MG/2 ML Vial ONE (21:04)
[2021-03-02] MEDS ORDERED: Ketorolac Tromethamine 30 MG/ML VIAL ONE (21:04)
[2021-03-02] MEDS ORDERED: traMADol HCl 50 MG TAB PO PRN (21:53)
[2021-03-02] MEDS ORDERED: Ibuprofen 600 MG TAB PO PRN (21:53)
[2021-03-02] MEDS ORDERED: Acetaminophen 500 MG TAB PO PRN (21:53)
[2021-03-02] MEDS ORDERED: Ondansetron HCl/PF 4 MG/2 ML Vial IVP PRN (21:56)
[2021-03-02] MEDS ORDERED: HYDROmorphone 2 MG/ML VIAL SLOW IVP PRN (21:56)
[2021-03-02] MEDS ORDERED: Acetaminophen 500 MG TAB PO SCH (22:45)
[2021-03-03] MEDS: VANCOMYCIN 2 GRAM/400 ML BAG 2 GM in Premix Bag 1 BAG IVPB SCH ×3 (00:10→22:34)
[2021-03-03] MEDS: Cefepime 2 GM in Sodium Chloride 0.9% 100 ML IVPB SCH ×2 (04:21→15:24)
[2021-03-03 05:43] LABS: #Lymphocytes 0.5 thou/uL (1.20-3.40); #Monocytes 0.2 thou/uL (0.11-0.59); #Neutrophils 3.5 thou/uL (1.40-6.50); %Eosinophils 1.1 % (0.0-10.0); %Lymphocytes 10.7 % (21.0-51.0); %Monocytes 4.5 % (0.0-10.0); %Neutrophils 83.7 % (42.0-75.0); Hemoglobin 15.6 g/dL (14.0-18.0); Mean Corpuscular HGB CONC 33.1 g/dL (32.0-36.0); Mean Corpuscular Volume 84.6 fL (78.0-98.0); Mean Platelet Volume 8.9 fL (7.4-10.4); Platelet Count 165 thou/uL (130-400); RBC Distribution Width 15.2 % (11.5-14.5); Red Blood Cell (RBC) Count 5.58 mill/uL (4.70-6.10); White Blood Cell (WBC) Count 4.2 thou/uL (4.8-10.8)
[2021-03-03 05:48] LABS: Anion Gap 12 mmol/L (10-20); BUN (Urea Nitrogen) 19 mg/dL (8.4-25.7); Calc. Creatinine Clearance 170 mL/min (70-130); Calcium 9.3 mg/dL (7.8-10.44); Carbon Dioxide 26 mmol/L (23-31); Chloride 103 mmol/L (98-107); Glucose 175 mg/dL (80-115); Potassium 4.7 mmol/L (3.5-5.1); Sodium 136 mmol/L (136-145)
[2021-03-03] MEDS: Levothyroxine Sodium 50 MCG TAB PO SCH (05:55)
[2021-03-03] MEDS: Nicotine 21 MG PATCH TD SCH (08:56)
[2021-03-03 09:34] LABS: Vancomycin, Trough 19.4 ug/mL
[2021-03-03] MEDS: Sodium Chloride 0.9% 1,000 ML IV SCH (23:08)
[2021-03-04] MEDS: Cefepime 2 GM in Sodium Chloride 0.9% 100 ML IVPB SCH ×2 (03:11→16:34)
[2021-03-04 04:54] LABS: #Eosinphils 0.5 thou/uL (0.0-0.7); #Lymphocytes 1.4 thou/uL (1.20-3.40); #Monocytes 0.6 thou/uL (0.11-0.59); #Neutrophils 3.9 thou/uL (1.40-6.50); %Basophils 0.7 % (0.0-1.0); %Eosinophils 7.4 % (0.0-10.0); %Lymphocytes 21.1 % (21.0-51.0); %Monocytes 9.7 % (0.0-10.0); %Neutrophils 61.1 % (42.0-75.0); Hemoglobin 14.9 g/dL (14.0-18.0); Mean Corpuscular Hemoglobin 28.1 pg (27.0-31.0); Mean Corpuscular Volume 85.2 fL (78.0-98.0); Platelet Count 176 thou/uL (130-400); Red Blood Cell (RBC) Count 5.31 mill/uL (4.70-6.10); White Blood Cell (WBC) Count 6.4 thou/uL (4.8-10.8)
[2021-03-04 05:26] LABS: Anion Gap 11 mmol/L (10-20); BUN (Urea Nitrogen) 18 mg/dL (8.4-25.7); Calc. Creatinine Clearance 209 mL/min (70-130); Calcium 9.1 mg/dL (7.8-10.44); Carbon Dioxide 26 mmol/L (23-31); Chloride 105 mmol/L (98-107); Glucose 104 mg/dL (80-115); Potassium 4.4 mmol/L (3.5-5.1); Sodium 138 mmol/L (136-145)
[2021-03-04] MEDS: Levothyroxine Sodium 50 MCG TAB PO SCH (06:05)
[2021-03-04] MEDS ORDERED: Hydrocerin (Eucerin) Cream 120 gm Jar TOP PRN (08:43)
[2021-03-04] MEDS ORDERED: GUAIFENESIN SF SOLN 200 MG/10 ML UDCUP PO PRN (08:43)
[2021-03-04] MEDS ORDERED: Loratadine 10 MG TAB PO PRN (08:43)
[2021-03-04] MEDS ORDERED: Senokot S 8.6-50 MG TAB PO PRN (08:43)
[2021-03-04] MEDS ORDERED: Bisacodyl 5 MG TAB PO PRN (08:43)
[2021-03-04] MEDS ORDERED: hydrALAZINE 20 MG/ML VIAL SLOW IVP PRN (08:43)
[2021-03-04] MEDS ORDERED: HYDROcodone/Acetaminophen 5/325 mg Tablet PO PRN (08:43)
[2021-03-04] MEDS ORDERED: Loperamide HCl 2 MG CAP PO PRN (08:43)
[2021-03-04] MEDS ORDERED: Sodium Chloride 0.65% Nasal 44 ML BOT EA NARE PRN (08:43)
[2021-03-04] MEDS ORDERED: Cepastat Lozenges 1 LOZ PO PRN (08:43)
[2021-03-04] MEDS ORDERED: Calcium Carbonate 500 MG ChewTAB PO PRN (08:43)
[2021-03-04] MEDS ORDERED: Acetaminophen 325 MG TAB PO PRN (08:59)
[2021-03-04] MEDS ORDERED: Non-Formulary Item 1 EACH (Rivaroxaban [Xarelto] 20 MG Tablet) PO SCH (09:00)
[2021-03-04] MEDS: VANCOMYCIN 2 GRAM/400 ML BAG 2 GM in Premix Bag 1 BAG IVPB SCH ×2 (09:02→22:09)
[2021-03-04] MEDS: Nicotine 21 MG PATCH TD SCH (09:07)
[2021-03-04 21:39] LABS: Vancomycin, Trough 19.8 ug/mL
[2021-03-05] MEDS: Cefepime 2 GM in Sodium Chloride 0.9% 100 ML IVPB SCH ×2 (03:05→15:23)
[2021-03-05] MEDS: Levothyroxine Sodium 50 MCG TAB PO SCH (06:01)
[2021-03-05 06:14] LABS: #Eosinphils 0.5 thou/uL (0.0-0.7); #Lymphocytes 1.3 thou/uL (1.20-3.40); #Monocytes 0.5 thou/uL (0.11-0.59); #Neutrophils 3.6 thou/uL (1.40-6.50); %Basophils 0.7 % (0.0-1.0); %Eosinophils 8.9 % (0.0-10.0); %Lymphocytes 21.4 % (21.0-51.0); Hemoglobin 14.5 g/dL (14.0-18.0); Mean Corpuscular HGB CONC 32.7 g/dL (32.0-36.0); Mean Corpuscular Hemoglobin 27.6 pg (27.0-31.0); Mean Corpuscular Volume 84.5 fL (78.0-98.0); Mean Platelet Volume 9.2 fL (7.4-10.4); Platelet Count 183 thou/uL (130-400); RBC Distribution Width 15.2 % (11.5-14.5); Red Blood Cell (RBC) Count 5.26 mill/uL (4.70-6.10); White Blood Cell (WBC) Count 5.9 thou/uL (4.8-10.8)
[2021-03-05 06:26] LABS: Anion Gap 13 mmol/L (10-20); BUN (Urea Nitrogen) 15 mg/dL (8.4-25.7); Calc. Creatinine Clearance 232 mL/min (70-130); Calcium 8.9 mg/dL (7.8-10.44); Carbon Dioxide 24 mmol/L (23-31); Chloride 105 mmol/L (98-107); Glucose 94 mg/dL (80-115); Potassium 4.5 mmol/L (3.5-5.1); Sodium 137 mmol/L (136-145)
[2021-03-05] MEDS: Nicotine 21 MG PATCH TD SCH (08:52)
[2021-03-05] MEDS: Rivaroxaban 10 MG TAB PO SCH (08:54)
[2021-03-05] MEDS ORDERED: Melatonin 3 MG TAB PO PRN (17:18)
[2021-03-06] MEDS: Cefepime 2 GM in Sodium Chloride 0.9% 100 ML IVPB SCH (02:29)
[2021-03-06] MEDS: Levothyroxine Sodium 50 MCG TAB PO SCH (05:44)
[2021-03-06 07:42] LABS: #Eosinphils 0.4 thou/uL (0.0-0.7); #Lymphocytes 1.1 thou/uL (1.20-3.40); #Monocytes 0.4 thou/uL (0.11-0.59); #Neutrophils 3.4 thou/uL (1.40-6.50); %Basophils 0.9 % (0.0-1.0); %Eosinophils 8.3 % (0.0-10.0); %Lymphocytes 20.1 % (21.0-51.0); %Neutrophils 63.7 % (42.0-75.0); Hemoglobin 14.8 g/dL (14.0-18.0); Mean Corpuscular HGB CONC 32.3 g/dL (32.0-36.0); Mean Corpuscular Hemoglobin 27.6 pg (27.0-31.0); Mean Corpuscular Volume 85.5 fL (78.0-98.0); Mean Platelet Volume 8.6 fL (7.4-10.4); Platelet Count 175 thou/uL (130-400); RBC Distribution Width 14.9 % (11.5-14.5); Red Blood Cell (RBC) Count 5.35 mill/uL (4.70-6.10); White Blood Cell (WBC) Count 5.3 thou/uL (4.8-10.8)
[2021-03-06 07:58] LABS: Anion Gap 7 mmol/L (10-20); BUN (Urea Nitrogen) 13 mg/dL (8.4-25.7); Calc. Creatinine Clearance 205 mL/min (70-130); Calcium 9.1 mg/dL (7.8-10.44); Carbon Dioxide 28 mmol/L (23-31); Chloride 105 mmol/L (98-107); Glucose 112 mg/dL (80-115); Potassium 4.3 mmol/L (3.5-5.1); Sodium 136 mmol/L (136-145)
[2021-03-06 09:09] LABS: Vancomycin, Trough 21.9 ug/mL
[2021-03-06] MEDS: Rivaroxaban 10 MG TAB PO SCH (10:24)
[2021-03-06] MEDS: Nicotine 21 MG PATCH TD SCH (10:25)
[2021-03-06] MEDS ORDERED: metroNIDAZOLE 500 MG in Premix Bag 1 BAG IVPB SCH (14:00)
[2021-03-06] MEDS ORDERED: metroNIDAZOLE 500 MG TAB PO SCH (14:00)
[2021-03-06 16:15] VITALS: BP 133/75; TEMP 98
[2021-03-06] MEDS ORDERED: VANCOMYCIN 2 GRAM/400 ML BAG 2 GM in Premix Bag 1 BAG IVPB SCH (22:00)
== END 2021-03-06 19:00 | disposition home or self-care (01) | DRG 854 ==
LOC: ERS 13:48 → 2NO 16:17 → T4-B 03-06 09:48
PROVIDERS: ADMIT Family Medicine; ATTEND Internal Medicine
PROC: 0Y6N0ZF Detachment at Left Foot, Partial 5th Ray, Open Approach (ICD-10-PCS; principal; 2021-03-02)
DX: A41.9 Sepsis, unspecified organism (principal); L03.116 Cellulitis of left lower limb; M86.172 Other acute osteomyelitis, left ankle and foot; E87.1 Hypo-osmolality and hyponatremia; I87.012 Postthrombotic syndrome with ulcer of left lower extremity; Z20.822 Contact with and (suspected) exposure to COVID-19; F17.210 Nicotine dependence, cigarettes, uncomplicated; I10 Essential (primary) hypertension; I73.9 Peripheral vascular disease, unspecified; R94.31 Abnormal electrocardiogram [ECG] [EKG]; E66.01 Morbid (severe) obesity due to excess calories; D75.1 Secondary polycythemia; I87.2 Venous insufficiency (chronic) (peripheral); L98.499 Non-pressure chronic ulcer of skin of other sites with unspecified severity; G62.9 Polyneuropathy, unspecified; Z86.711 Personal history of pulmonary embolism; Z86.718 Personal history of other venous thrombosis and embolism; Z79.899 Other long term (current) drug therapy
CPT/HCPCS: 36415; 80048; 80053; 80202; 83605; 85025; 85610; 85652; 85730; 86140; 87040; 87070; 87076; 87149; 87205; 88305; 88311; 93005; 94760; 96365; 96367; J0692; J1100; J1885; J2405; J2704; J3010; J3370; J3490; J7030; J7050; U0003; U0005

== ENCOUNTER 2024-03-01 13:32 | Inpatient (IN) | payer MEDICARE ==
[2024-03-01 14:16] LABS: %Basophils 0.7 % (0.0-1.0); %Eosinophils 2.4 % (0.0-10.0); %Lymphocytes 7.8 % (21.0-51.0); %Monocytes 5.9 % (0.0-10.0); %Neutrophils 81.5 % (42.0-75.0); Hematocrit 48.4 % (42.0-52.0); Hemoglobin 15.6 g/dL (14.0-18.0); Mean Corpuscular HGB CONC 32.2 g/dL (32.0-36.0); Mean Corpuscular Hemoglobin 25.9 pg (27.0-31.0); Mean Corpuscular Volume 80.4 fL (78.0-98.0); Mean Platelet Volume 10.7 fL (7.4-10.4); Platelet Count 366 10x3/uL (130-400); RBC Distribution Width 15.5 % (11.5-14.5); Red Blood Cell (RBC) Count 6.02 mill/uL (4.70-6.10)
[2024-03-01 14:32] LABS: ALT (SGPT) 42 U/L (8-55); AST (SGOT) 23 U/L (5-34); Albumin 2.6 g/dL (3.4-4.8); Alkaline Phosphatase 207 U/L (40-110); Anion Gap 16 mmol/L (10-20); BUN (Urea Nitrogen) 24 mg/dL (8.4-25.7); Bilirubin, Total 0.9 mg/dL (0.2-1.2); Calc. Creatinine Clearance 0 mL/min (70-130); Calcium 11.2 mg/dL (7.8-10.44); Carbon Dioxide 27 mmol/L (23-31); Chloride 93 mmol/L (98-107); Estimated GFR 61; Globulin 5.8 g/dL (2.4-3.5); Glucose 112 mg/dL (80-115); Protein, Total 8.4 g/dL (5.8-8.1); Sodium 132 mmol/L (136-145)
[2024-03-01] MEDS ORDERED: Piperacillin/Tazobactam 4.5 GM VIAL ONE (15:33)
[2024-03-01] MEDS ORDERED: Acetaminophen 325 MG TAB ONE (15:33)
[2024-03-01] MEDS ORDERED: Sodium Chloride 0.9% 100 ML ONE (15:34)
[2024-03-01] MEDS ORDERED: Magnesium Citrate 300 ML BOT ONE (15:34)
[2024-03-01] MEDS ORDERED: Calcium Carbonate 500 MG ChewTAB PO PRN (16:43)
[2024-03-01] MEDS ORDERED: Ondansetron ODT 4 MG TAB PO PRN (16:43)
[2024-03-01] MEDS: Vancomycin (BATCH) 2.5 GM in Premix 1 BAG IVPB SCH (17:35)
[2024-03-01 18:24] VITALS: BMI 35.1
[2024-03-01] MEDS: Cefepime 1 GM in Sodium Chloride 0.9% 100 ML IVPB SCH (20:27)
[2024-03-01] MEDS: VANCOMYCIN 1.25 GM/250 ML BAG 1.25 GM in Premix 1 BAG IVPB SCH (23:46)
[2024-03-02] MEDS: Levothyroxine Sodium 50 MCG TAB PO SCH (04:54)
[2024-03-02 05:33] LABS: #Basophils 0.08 10x3/uL (0.0-0.2); %Basophils 0.7 % (0.0-1.0); %Eosinophils 4.8 % (0.0-10.0); %Lymphocytes 8.1 % (21.0-51.0); %Monocytes 7.7 % (0.0-10.0); %Neutrophils 75.1 % (42.0-75.0); Hematocrit 42.3 % (42.0-52.0); Hemoglobin 13.4 g/dL (14.0-18.0); Mean Corpuscular HGB CONC 31.7 g/dL (32.0-36.0); Mean Corpuscular Hemoglobin 25.8 pg (27.0-31.0); Mean Corpuscular Volume 81.3 fL (78.0-98.0); Mean Platelet Volume 10.8 fL (7.4-10.4); Platelet Count 322 10x3/uL (130-400); RBC Distribution Width 15.5 % (11.5-14.5)
[2024-03-02 06:13] LABS: Vancomycin, Random 32.3 ug/mL (See Comment)
[2024-03-02 06:16] LABS: Hemoglobin A1c 5.3 % (4.0-6.0)
[2024-03-02 06:22] LABS: ALT (SGPT) 32 U/L (8-55); AST (SGOT) 23 U/L (5-34); Albumin 2.2 g/dL (3.4-4.8); Alkaline Phosphatase 163 U/L (40-110); Anion Gap 14 mmol/L (10-20); BUN (Urea Nitrogen) 29 mg/dL (8.4-25.7); Bilirubin, Total 0.7 mg/dL (0.2-1.2); Calc. Creatinine Clearance 100 mL/min (70-130); Calcium 10.3 mg/dL (7.8-10.44); Carbon Dioxide 24 mmol/L (23-31); Cardiac Risk 5.5 (Less than 4.5); Chloride 98 mmol/L (98-107); Cholesterol 105 mg/dl (< 200 Desired); Estimated GFR 56; Globulin 4.6 g/dL (2.4-3.5); Glucose 102 mg/dL (80-115); HDL Cholesterol 19 mg/dL (>60 Neg Risk); LDL Cholesterol, Calculated 66 mg/dL; Potassium 3.9 mmol/L (3.5-5.1); Protein, Total 6.8 g/dL (5.8-8.1); Sodium 132 mmol/L (136-145); Triglycerides 99 mg/dL (Less than 150)
[2024-03-02] MEDS: Enoxaparin 40 MG (0.4 mL) SYRINGE SC SCH (08:56)
[2024-03-02] MEDS: Nicotine 14 MG PATCH TD SCH (08:57)
[2024-03-02] MEDS: Cefepime 2 GM in Sodium Chloride 0.9% 100 ML IVPB SCH (15:42)
[2024-03-02] MEDS: Vancomycin (BATCH) 1.5 GM in Premix 1 BAG IVPB SCH (22:15)
[2024-03-03 05:19] LABS: Vancomycin, Random 29.7 ug/mL (See Comment)
[2024-03-03 07:48] LABS: %Basophils 1.1 % (0.0-1.0); %Eosinophils 5.8 % (0.0-10.0); %Lymphocytes 11.4 % (21.0-51.0); %Monocytes 8.5 % (0.0-10.0); %Neutrophils 69.3 % (42.0-75.0); Hematocrit 43.5 % (42.0-52.0); Hemoglobin 13.3 g/dL (14.0-18.0); Mean Corpuscular HGB CONC 30.6 g/dL (32.0-36.0); Mean Corpuscular Hemoglobin 25.7 pg (27.0-31.0); Mean Corpuscular Volume 84.1 fL (78.0-98.0); Mean Platelet Volume 10.7 fL (7.4-10.4); Platelet Count 347 10x3/uL (130-400); RBC Distribution Width 15.7 % (11.5-14.5); Red Blood Cell (RBC) Count 5.17 mill/uL (4.70-6.10)
[2024-03-03] MEDS: Rivaroxaban 10 MG TAB PO SCH (08:34)
[2024-03-03] MEDS: FLU (Fluad Triv) TS24-25 (65UP)/MF59C/PF 45 MCG/0.5 ML Syringe IM ONE (08:35)
[2024-03-03 08:58] VITALS: BMI 35.1
[2024-03-03] MEDS: Acetaminophen 325 MG TAB PO PRN (20:50)
[2024-03-04 06:04] LABS: Anion Gap 13 mmol/L (10-20); BUN (Urea Nitrogen) 26 mg/dL (8.4-25.7); Calc. Creatinine Clearance 129 mL/min (70-130); Calcium 10.3 mg/dL (7.8-10.44); Carbon Dioxide 27 mmol/L (23-31); Chloride 101 mmol/L (98-107); Estimated GFR 77; Glucose 110 mg/dL (80-115); Potassium 4.6 mmol/L (3.5-5.1); Sodium 136 mmol/L (136-145)
[2024-03-04 06:05] LABS: CRP,High Sensitivity (Inhouse) 5.46 mg/dL (< or = 0.5)
[2024-03-04] MEDS: cefTRIAXone\\ROCEPHIN 2 GM in Sodium Chloride 0.9% 100 ML IVPB SCH (14:54)
[2024-03-04] MEDS: metroNIDAZOLE 500 MG TAB PO SCH (16:03)
[2024-03-05] MEDS ORDERED: Ondansetron PF 4 MG/2 ML Vial ONE (11:29)
[2024-03-05] MEDS ORDERED: Dexamethasone 20 MG/5 ML VIAL ONE (11:29)
[2024-03-05] MEDS ORDERED: Lidocaine 1% PF 5 ML VIAL ONE (11:29)
[2024-03-05] MEDS ORDERED: fentaNYL PF 100 MCG/2 ML SYRINGE ONE (11:30)
[2024-03-05] MEDS ORDERED: PROPOFOL 20 ML ONE (11:30)
[2024-03-05] MEDS ORDERED: PHENYLEPHRINE-NS 100 MCG/ML 10 ML SYRINGE ONE ×2 (13:12→14:24)
[2024-03-05] MEDS ORDERED: HYDROmorphone 2 MG/ML VIAL ONE (14:38)
[2024-03-05] MEDS ORDERED: Albumin 5% 500 ML ONE (14:44)
[2024-03-05] MEDS ORDERED: Ipratropium/Albuterol 3 ML NEB NEB PRN (16:51)
[2024-03-05] MEDS ORDERED: Insulin Regular, Human 100 UNIT/ML 10 ML VIAL SC PRN (16:51)
[2024-03-05] MEDS ORDERED: Promethazine HCl 25 MG/ML VIAL IM PRN (16:51)
[2024-03-05] MEDS ORDERED: fentaNYL 50 mcg/mL 1 mL Vial SLOW IVP PRN (16:51)
[2024-03-05] MEDS ORDERED: fentaNYL 50 mcg/mL 1 mL Vial ONE ×2 (17:14→18:18)
[2024-03-05] MEDS ORDERED: HYDROmorphone 0.5 MG/0.5 ML SYRINGE ONE (17:46)
[2024-03-05] MEDS: Ondansetron PF 4 MG/2 ML Vial IVP PRN (20:41)
[2024-03-05] MEDS: Gabapentin 300 MG CAP PO SCH (20:41)
[2024-03-05] MEDS: Morphine 4 MG/ML VIAL SLOW IVP PRN (20:41)
[2024-03-05] MEDS: traMADol HCl 50 MG TAB PO PRN (22:56)
[2024-03-06 05:03] LABS: #Basophils 0.12 10x3/uL (0.0-0.2); %Basophils 0.6 % (0.0-1.0); %Lymphocytes 6.9 % (21.0-51.0); %Monocytes 6.3 % (0.0-10.0); %Neutrophils 81.9 % (42.0-75.0); Hematocrit 36.9 % (42.0-52.0); Hemoglobin 11.5 g/dL (14.0-18.0); Mean Corpuscular HGB CONC 31.2 g/dL (32.0-36.0); Mean Corpuscular Hemoglobin 26.3 pg (27.0-31.0); Mean Corpuscular Volume 84.4 fL (78.0-98.0); Platelet Count 377 10x3/uL (130-400); RBC Distribution Width 15.6 % (11.5-14.5); Red Blood Cell (RBC) Count 4.37 mill/uL (4.70-6.10)
[2024-03-06 05:17] LABS: Anion Gap 11 mmol/L (10-20); BUN (Urea Nitrogen) 28 mg/dL (8.4-25.7); Calc. Creatinine Clearance 100 mL/min (70-130); Calcium 9.5 mg/dL (7.8-10.44); Carbon Dioxide 25 mmol/L (23-31); Chloride 105 mmol/L (98-107); Estimated GFR 56; Glucose 117 mg/dL (80-115); Potassium 5.1 mmol/L (3.5-5.1); Sodium 136 mmol/L (136-145)
[2024-03-06] MEDS: CEFAZOLIN 2 GM in Sodium Chloride 0.9% 100 ML IVPB SCH (07:20)
[2024-03-06] MEDS: Furosemide 20 MG TAB PO SCH (14:22)
[2024-03-06] MEDS: Baclofen 10 MG TAB PO SCH (14:22)
[2024-03-06] MEDS: Gabapentin 300 MG CAP PO SCH (14:23)
[2024-03-07 09:07] LABS: #Basophils 0.07 10x3/uL (0.0-0.2); %Basophils 0.6 % (0.0-1.0); %Eosinophils 1.9 % (0.0-10.0); %Lymphocytes 11.8 % (21.0-51.0); %Monocytes 3.5 % (0.0-10.0); %Neutrophils 78.3 % (42.0-75.0); Hematocrit 31.6 % (42.0-52.0); Mean Corpuscular HGB CONC 31.6 g/dL (32.0-36.0); Mean Corpuscular Hemoglobin 26.5 pg (27.0-31.0); Mean Corpuscular Volume 83.6 fL (78.0-98.0); Mean Platelet Volume 10.5 fL (7.4-10.4); Platelet Count 305 10x3/uL (130-400); RBC Distribution Width 15.9 % (11.5-14.5); Red Blood Cell (RBC) Count 3.78 mill/uL (4.70-6.10)
[2024-03-07 09:23] LABS: Anion Gap 11 mmol/L (10-20); BUN (Urea Nitrogen) 31 mg/dL (8.4-25.7); Calc. Creatinine Clearance 101 mL/min (70-130); Calcium 9.3 mg/dL (7.8-10.44); Carbon Dioxide 25 mmol/L (23-31); Chloride 103 mmol/L (98-107); Estimated GFR 57; Glucose 125 mg/dL (80-115); Magnesium 1.9 mg/dL (1.6-2.6); Potassium 4.3 mmol/L (3.5-5.1); Sodium 135 mmol/L (136-145)
[2024-03-07] MEDS: Furosemide 20 MG TAB PO SCH (09:37)
[2024-03-07] MEDS: traMADol HCl 50 MG TAB PO PRN (16:24)
[2024-03-08 10:15] LABS: %Basophils 0.7 % (0.0-1.0); %Eosinophils 3.2 % (0.0-10.0); %Lymphocytes 12.3 % (21.0-51.0); %Monocytes 6.1 % (0.0-10.0); %Neutrophils 73.3 % (42.0-75.0); Hematocrit 32.1 % (42.0-52.0); Hemoglobin 10.1 g/dL (14.0-18.0); Mean Corpuscular HGB CONC 31.5 g/dL (32.0-36.0); Mean Corpuscular Hemoglobin 26.4 pg (27.0-31.0); Mean Platelet Volume 9.8 fL (7.4-10.4); Platelet Count 299 10x3/uL (130-400); Red Blood Cell (RBC) Count 3.82 mill/uL (4.70-6.10)
[2024-03-08 10:41] LABS: Anion Gap 12 mmol/L (10-20); BUN (Urea Nitrogen) 27 mg/dL (8.4-25.7); Calc. Creatinine Clearance 126 mL/min (70-130); Calcium 9.7 mg/dL (7.8-10.44); Carbon Dioxide 27 mmol/L (23-31); Chloride 102 mmol/L (98-107); Estimated GFR 74; Glucose 108 mg/dL (80-115); Magnesium 1.9 mg/dL (1.6-2.6); Potassium 4.6 mmol/L (3.5-5.1); Sodium 136 mmol/L (136-145)
[2024-03-09 05:52] LABS: %Basophils 0.9 % (0.0-1.0); %Eosinophils 3.3 % (0.0-10.0); %Lymphocytes 13.1 % (21.0-51.0); %Monocytes 6.1 % (0.0-10.0); %Neutrophils 72.6 % (42.0-75.0); Hematocrit 30.8 % (42.0-52.0); Hemoglobin 9.5 g/dL (14.0-18.0); Mean Corpuscular HGB CONC 30.8 g/dL (32.0-36.0); Mean Corpuscular Hemoglobin 26.4 pg (27.0-31.0); Mean Corpuscular Volume 85.6 fL (78.0-98.0); Mean Platelet Volume 10.1 fL (7.4-10.4); Platelet Count 258 10x3/uL (130-400)
[2024-03-09 06:20] LABS: Anion Gap 10 mmol/L (10-20); BUN (Urea Nitrogen) 23 mg/dL (8.4-25.7); Calc. Creatinine Clearance 127 mL/min (70-130); Calcium 9.9 mg/dL (7.8-10.44); Carbon Dioxide 29 mmol/L (23-31); Chloride 103 mmol/L (98-107); Estimated GFR 75; Glucose 105 mg/dL (80-115); Potassium 4.7 mmol/L (3.5-5.1); Sodium 137 mmol/L (136-145)
[2024-03-10 05:37] LABS: #Basophils 0.08 10x3/uL (0.0-0.2); %Basophils 0.8 % (0.0-1.0); %Eosinophils 4.7 % (0.0-10.0); %Lymphocytes 15.1 % (21.0-51.0); %Monocytes 6.5 % (0.0-10.0); %Neutrophils 69.8 % (42.0-75.0); Hematocrit 32.2 % (42.0-52.0); Mean Corpuscular HGB CONC 31.1 g/dL (32.0-36.0); Mean Corpuscular Hemoglobin 26.5 pg (27.0-31.0); Mean Corpuscular Volume 85.2 fL (78.0-98.0); Mean Platelet Volume 10.4 fL (7.4-10.4); Platelet Count 253 10x3/uL (130-400); RBC Distribution Width 16.5 % (11.5-14.5); Red Blood Cell (RBC) Count 3.78 mill/uL (4.70-6.10)
[2024-03-10 05:55] LABS: Anion Gap 11 mmol/L (10-20); BUN (Urea Nitrogen) 19 mg/dL (8.4-25.7); Calc. Creatinine Clearance 125 mL/min (70-130); Calcium 9.8 mg/dL (7.8-10.44); Carbon Dioxide 30 mmol/L (23-31); Chloride 102 mmol/L (98-107); Estimated GFR 73; Glucose 100 mg/dL (80-115); Magnesium 1.9 mg/dL (1.6-2.6); Potassium 4.5 mmol/L (3.5-5.1); Sodium 138 mmol/L (136-145)
[2024-03-10] MEDS: Senokot S 8.6-50 MG TAB PO PRN (08:31)
[2024-03-10] MEDS: Rivaroxaban 10 MG TAB PO SCH (18:37)
[2024-03-11 05:53] LABS: #Basophils 0.07 10x3/uL (0.0-0.2); %Basophils 0.7 % (0.0-1.0); %Eosinophils 4.3 % (0.0-10.0); %Lymphocytes 15.7 % (21.0-51.0); %Monocytes 6.4 % (0.0-10.0); %Neutrophils 70.6 % (42.0-75.0); Hematocrit 31.6 % (42.0-52.0); Hemoglobin 9.8 g/dL (14.0-18.0); Mean Corpuscular Hemoglobin 26.3 pg (27.0-31.0); Mean Corpuscular Volume 84.7 fL (78.0-98.0); Mean Platelet Volume 10.8 fL (7.4-10.4); Platelet Count 261 10x3/uL (130-400); RBC Distribution Width 16.4 % (11.5-14.5); Red Blood Cell (RBC) Count 3.73 mill/uL (4.70-6.10)
[2024-03-11 06:08] LABS: Anion Gap 10 mmol/L (10-20); BUN (Urea Nitrogen) 22 mg/dL (8.4-25.7); Calc. Creatinine Clearance 121 mL/min (70-130); Carbon Dioxide 30 mmol/L (23-31); Chloride 101 mmol/L (98-107); Estimated GFR 71; Glucose 104 mg/dL (80-115); Magnesium 1.9 mg/dL (1.6-2.6); Potassium 4.4 mmol/L (3.5-5.1); Sodium 137 mmol/L (136-145)
[2024-03-11] MEDS: Magnesium Citrate 300 ML BOT PO SCH (13:34)
[2024-03-11 14:10] VITALS: BP 132/71; TEMP 98.4
[2024-03-11] MEDS ORDERED: Rivaroxaban 10 MG TAB PO SCH (17:00)
== END 2024-03-11 15:04 | disposition swing bed (61) | DRG 580 ==
LOC: SUATTDRO 13:32 → ERS 13:32 → T4-A 16:23
PROVIDERS: ADMIT Internal Medicine; ATTEND Hospitalist
PROC: 0Y6J0Z3 Detachment at Left Lower Leg, Low, Open Approach (ICD-10-PCS; principal; 2024-03-05)
PROC: 30233N1 Transfusion of Nonautologous Red Blood Cells into Peripheral Vein, Percutaneous Approach (ICD-10-PCS; 2024-03-05)
PROC: 30233J1 Transfusion of Nonautologous Serum Albumin into Peripheral Vein, Percutaneous Approach (ICD-10-PCS; 2024-03-05)
DX: L97.529 Non-pressure chronic ulcer of other part of left foot with unspecified severity (principal); D62 Acute posthemorrhagic anemia; N17.9 Acute kidney failure, unspecified; L08.9 Local infection of the skin and subcutaneous tissue, unspecified; E03.9 Hypothyroidism, unspecified; Z68.35 Body mass index [BMI] 35.0-35.9, adult; Z98.890 Other specified postprocedural states; F17.210 Nicotine dependence, cigarettes, uncomplicated; Z79.899 Other long term (current) drug therapy; E66.01 Morbid (severe) obesity due to excess calories; I87.2 Venous insufficiency (chronic) (peripheral); I89.0 Lymphedema, not elsewhere classified; N18.2 Chronic kidney disease, stage 2 (mild); I12.9 Hypertensive chronic kidney disease with stage 1 through stage 4 chronic kidney disease, or unspecified chronic kidney disease
CPT/HCPCS: 36415; 36416; 36430; 80048; 80053; 80061; 80202; 83036; 83605; 83735; 84145; 85025; 86141; 86850; 86900; 86901; 87040; 87070; 87077; 87186; 87205; 88307; 96365; 96367; 97139; J0692; J0696; J1100; J1650; J2272; J2405; J2543; J2704; J3010; J3370; P9016; P9045

== ENCOUNTER 2024-04-06 11:22 | Observation (INO) | payer MEDICARE ==
[2024-04-06] MEDS ORDERED: Senokot S 8.6-50 MG TAB PO PRN (15:04)
[2024-04-06 17:44] VITALS: BMI 39.4
[2024-04-06] MEDS ORDERED: Ondansetron ODT 4 MG TAB SL PRN (18:30)
[2024-04-06] MEDS ORDERED: Ondansetron PF 4 MG/2 ML Vial IVP PRN (18:30)
[2024-04-06] MEDS: Acetaminophen 500 MG TAB PO PRN (18:35)
[2024-04-06 19:50] LABS: #Basophils 0.06 10x3/uL (0.0-0.2); %Basophils 0.7 % (0.0-1.0); %Eosinophils 4.8 % (0.0-10.0); %Lymphocytes 16.9 % (21.0-51.0); %Monocytes 6.5 % (0.0-10.0); %Neutrophils 70.4 % (42.0-75.0); Hematocrit 33.4 % (42.0-52.0); Hemoglobin 10.4 g/dL (14.0-18.0); Mean Corpuscular HGB CONC 31.1 g/dL (32.0-36.0); Mean Corpuscular Volume 83.5 fL (78.0-98.0); Mean Platelet Volume 10.6 fL (7.4-10.4); Platelet Count 294 10x3/uL (130-400); RBC Distribution Width 17.4 % (11.5-14.5)
[2024-04-06 20:09] LABS: Anion Gap 11 mmol/L (10-20); BUN (Urea Nitrogen) 21 mg/dL (8.4-25.7); Calc. Creatinine Clearance 89 mL/min (70-130); Carbon Dioxide 25 mmol/L (23-31); Chloride 107 mmol/L (98-107); Estimated GFR 52; Glucose 119 mg/dL (80-115); Potassium 3.9 mmol/L (3.5-5.1); Sodium 139 mmol/L (136-145)
[2024-04-06] MEDS: Sulfameth/Trimethoprim DS 800-160mg TAB PO SCH (21:01)
[2024-04-07] MEDS: Levothyroxine Sodium 50 MCG TAB PO SCH (06:11)
[2024-04-07] MEDS: Rivaroxaban 10 MG TAB PO SCH (08:23)
[2024-04-07 09:52] LABS: #Basophils 0.06 10x3/uL (0.0-0.2); %Basophils 0.8 % (0.0-1.0); %Lymphocytes 15.6 % (21.0-51.0); %Monocytes 5.9 % (0.0-10.0); Hemoglobin 10.4 g/dL (14.0-18.0); Mean Corpuscular HGB CONC 30.6 g/dL (32.0-36.0); Mean Corpuscular Hemoglobin 25.4 pg (27.0-31.0); Mean Corpuscular Volume 83.1 fL (78.0-98.0); Mean Platelet Volume 10.6 fL (7.4-10.4); Platelet Count 268 10x3/uL (130-400); RBC Distribution Width 17.5 % (11.5-14.5); Red Blood Cell (RBC) Count 4.09 mill/uL (4.70-6.10)
[2024-04-07 10:04] LABS: Anion Gap 11 mmol/L (10-20); BUN (Urea Nitrogen) 22 mg/dL (8.4-25.7); Calc. Creatinine Clearance 116 mL/min (70-130); Carbon Dioxide 27 mmol/L (23-31); Chloride 106 mmol/L (98-107); Estimated GFR 71; Glucose 90 mg/dL (80-115); Potassium 4.2 mmol/L (3.5-5.1); Sodium 140 mmol/L (136-145)
[2024-04-08 07:13] LABS: #Basophils 0.04 10x3/uL (0.0-0.2); %Basophils 0.6 % (0.0-1.0); %Eosinophils 4.4 % (0.0-10.0); %Lymphocytes 16.4 % (21.0-51.0); Hematocrit 36.3 % (42.0-52.0); Mean Corpuscular HGB CONC 30.3 g/dL (32.0-36.0); Mean Corpuscular Hemoglobin 25.4 pg (27.0-31.0); Mean Corpuscular Volume 83.8 fL (78.0-98.0); Mean Platelet Volume 10.9 fL (7.4-10.4); Platelet Count 252 10x3/uL (130-400); RBC Distribution Width 17.4 % (11.5-14.5); Red Blood Cell (RBC) Count 4.33 mill/uL (4.70-6.10)
[2024-04-08 07:25] LABS: Anion Gap 10 mmol/L (10-20); BUN (Urea Nitrogen) 24 mg/dL (8.4-25.7); Calc. Creatinine Clearance 99 mL/min (70-130); Carbon Dioxide 27 mmol/L (23-31); Chloride 106 mmol/L (98-107); Estimated GFR 59; Glucose 102 mg/dL (80-115); Potassium 4.4 mmol/L (3.5-5.1); Sodium 139 mmol/L (136-145)
[2024-04-08 15:10] VITALS: BMI 39.3
[2024-04-10 08:29] VITALS: BP 138/67; TEMP 97.3
[2024-04-10] MEDS ORDERED: Hydrochlorothiazide 25 MG TAB PO SCH (09:00)
== END 2024-04-10 11:29 | disposition home or self-care (01) ==
LOC: SUATTDRO 11:22 → ERS 11:22 → SURG B 15:09
PROVIDERS: ADMIT Internal Medicine; ATTEND Internal Medicine
DX: T81.30XA Disruption of wound, unspecified, initial encounter (principal); L03.115 Cellulitis of right lower limb; I10 Essential (primary) hypertension; E03.9 Hypothyroidism, unspecified; F17.210 Nicotine dependence, cigarettes, uncomplicated; Z86.718 Personal history of other venous thrombosis and embolism; Z79.890 Hormone replacement therapy; Z79.01 Long term (current) use of anticoagulants; Z79.2 Long term (current) use of antibiotics; Z79.899 Other long term (current) drug therapy; W19.XXXA Unspecified fall, initial encounter
CPT/HCPCS: 73590; 80048 ×3; 85025 ×3; 87070; 87205; 97139 ×6; G0378 ×6; 36415; 99284